=== PATIENT | male | born 1945 | race Caucasian/White ===

== ENCOUNTER 2025-05-21 10:21 | Inpatient (IN) | payer OTHER, MEDICAID ==
[2025-05-21] VITALS (32 sets, daily range): BP systolic 94–141; BP diastolic 60–91; PULSE 67–98; RESP 11–30; TEMP 98.5–99.3; O2SAT 18–98
[~2025-05-21] VITALS: Ht 185.4 cm; Wt 90.0 kg
[2025-05-21] MEDS: HEPARIN SODIUM (PORCINE) 5000 UNITS/ML 1ML VIAL IV ONE (10:35)
[2025-05-21] MEDS: HEPARIN 1,000 UNITS/ml 1ML VIAL IV ONE (10:35)
--- NOTE | 2025-05-21 10:35 | DVHINCON2 ---
Date Seen: May 21, 2025 Referring Physician MD Jose Reason for Consultation STEMI History of Present Illness This is a pleasant 80-year-old man who presented to the emergency room via EMS with a chief complaint of chest pain since Tuesday. Describes his chest pain as left-sided, nonradiating, non provoked, pressure-like, and associated with shortness of breath. Given progression of symptoms, patient decided to call 911. EN route to the hospital he was medicated with ASA 324 mg p.o. x1. Upon arrival to the emergency room he underwent a 12 lead electrocardiogram revealing inferoseptal ST-elevation for which Code STEMI was activated by ED physician. Doctor Nile communicated with Dr. Sepulveda who will be taking the case. The patient only reports a past medical history of benign prostatic hyperplasia on Flomax. Significant familial history includes mother with a history of a myocardial infarction not undergoing invasive cardiac procedures. Follows up in the outpatient setting with Dr. Lion with latest appointment completed a week ago. Past Medical History Past medical history reviewed. No other significant than mentioned above. Past Surgical History Hemorrhoidectomy Family History Family history reviewed. Mother with PA not undergoing invasive cardiac procedures. Social History Denies the use of illicit drugs, alcohol, or tobacco use. Allergies: Coded Allergies: Penicillins (Verified Allergy, Severe, 05/21/25) Home Meds Home medications reviewed. Review of Systems Constitutional: No symptom reported Ears, Nose, & Throat: No symptom reported Eyes: No symptom reported Neurological: No symptoms reported Pulmonary/Respiratory: SOB Cardiovascular: Chest pain Gastrointestinal: No symptom reported Genitourinary: No symptom reported Musculoskeletal: No symptom reported Skin: No symptom reported Psychiatric: No symptom reported Endocrine: No symptom reported Hemotologic/Lymphatic: No symptom reported Vital Signs Vital Signs Date Time Temp Pulse Resp B/P (MAP) Pulse Ox O2 Delivery O2 Flow Rate FiO2 05/21/25 10:34 98.1 74 18 145/81 (102) 95 98.1 05/21/25 10:21 Nasal Cannula* 3 32 Physical Exam General Appearance: Cooperative. Well developed. Well nourished. In no acute distress Head Exam: Normal inspection Neck Exam: Normal inspection. Non-tender. Normal alignment Pulmonary/Respiratory: Chest non-tender. Clear bilateral breath sounds Cardiovascular/Chest: Regular rate and rhythm. S1, S2. Inferoseptal myocardial infarction. No murmurs. No JVD. Peripheral Pulses: 2+ Radial (R). 2+ Radial (L). 2+ Pedal (R). 2+ Pedal (L) Abdominal Exam: Normal bowel sounds. Soft. Nontender. No hepatospenomegaly. No masses Ankle Exam: Negative ankle edema Lower extremities: Negative lower extremity edema Neuro/Mental Status: A&O x4. Coherent Thoughts/Psych: Normal thought pattern. Appropriate mood and affect. Good judgement and insight Appearance: In no acute distress Skin Exam: Normal inspection. Normal color. Warm. Dry Assessment ST-elevation myocardial infarction Rule out structural heart disease Pertinent family history for CV disease Plan/Recommendation (Dr. Sepulveda) The patient will be undergoing emergent coronary angiogram with cardiac catheterization at first available with Dr. Sepulveda. Risks and benefits of the procedure were discussed in full detail with the patient who agreed to proceed with intervention. All questions answered. In the meantime, obtain a transthoracic echocardiogram to evaluate cardiac function. Patient loaded on heparin IV and ASA p.o. Blood work and CXR pending at this time. Further orders per clinical course. Thank you for allowing us to participate in this patient's care. Please call if you have any questions or concerns. Critical care time: 40 min. This medical document was created using an electronic medical record system with voice recognition software and computerized dictation system. Although this document has been carefully reviewed, there might still be some phonetic and typographical errors. Occasional wrong-word or ``sound-alike substitutions may have occurred due to the inherent limitations of voice recognition software. These areas are purely typographical due to imperfections of the software programs and do not reflect any compromise in the patient's medical care. Please read the chart carefully and recognize, using context, where these substitutions have occurred. Plan discussed with: Patient, Other NYHA Physical activity limitations: NA Date of Service: May 21, 2025 Billing Provider: EDWINA OLIVARES Cardiology Common Codes: 66717-[id number] CARE 30-74 MIN EDWINA OLIVARES May 21, 2025 10:35
[2025-05-21] MEDS: MORPHINE SULFATE INJ 2 MG/ml SYRG IV ONE (10:36)
[2025-05-21] MEDS: ONDANSETRON HCL 4 MG/2 ML VIAL IV ONE (10:36)
[2025-05-21] MEDS: MORPHINE SULFATE INJ 2 MG/ml SYRG ONE (10:37)
[2025-05-21] MEDS: ONDANSETRON HCL 4 MG/2 ML VIAL ONE (10:37)
[2025-05-21 10:45] LABS: Hematocrit 46.1 % (41.0-53.0); Hemoglobin 15.8 g/dL (13.5-17.5); Mean Corpuscular Hemoglobin 32.6 pg (28.0-32.0); Mean Corpuscular Volume 95.1 fL (80.0-100.0); Nucleated Red Blood Cells % 0.0 %
--- NOTE | 2025-05-21 10:49 | ED.PDOC ---
HPI Comments This is a 80-year-old male with past medical history of brought in by EMS due to chest pain. Per patient, pain started while he was sitting, localized at substernal area, nonradiating, describes as heaviness, 9/10 in intensity, worsening with changing position and walking. He also reports of shortness of breaths. Patient reports of having chest pain 1 week back which lasted for short time, and developed back same pain on Tuesday which lasted for all day. He denies fever, cough, palpitation, nausea, vomiting, or sweating. He denies of any heart problem in the past. Chief Complaint: Chest Pain Time Seen by MD: 10:28 Reviewed Notes: Admissions Advisor Notes Allergies: Coded Allergies: Penicillins (Verified Allergy, Severe, 05/21/25) Information Source: Patient Mode of Arrival: EMS Severity: Severe Timing: Days Duration: Days Prehospital treatment: 12 Lead EKG Location: Substernal Quality: Heavy Onset: At Rest Cardiac Risk Factors: None PE Risk Factors: None History of: None Modifying Factors: Exertion, Position Change Associated Signs and Symptoms: SOB Past Medical History Past Medical History (Other): BPH and hemorrhoids Surgical History: Denies all surgeries Family History Family History: Reviewed,noncontributory to illness, No family hx of Cancer, No family hx of DM, No family hx of Heart alysha, No family hx of HTN, No family hx ofKidney alysha, No family hx of Liver alysha, No family hx of Lung alysha, No family hx of Stroke Social History Smoker: Non-Smoker Alcohol: Denies ETOH Use Drugs: Denies Drug Use Constitutional: denies: chills, diaphoresis, fatigue, fever, malaise, sweats, weakness, others EENTM: denies: blurred vision, double vision, ear bleeding, ear discharge, ear drainage, ear pain, ear ringing, eye pain, eye redness, hearing loss, mouth pain, mouth swelling, nasal discharge, nose bleeding, nose congestion, nose pain, photophobia, tearing, throat pain, throat swelling, voice changes, others Respiratory: reports: shortness of breath; denies: cough, hemoptysis, orthopnea, SOB at rest, SOB with excertion, stridor, wheezing, others Cardiovascular: reports: chest pain; denies: dizzy spells, diaphoresis, Dyspnea on exertion, edema, irregular heart beat, left arm pain, lightheadedness, palpitations, PND, syncope, others Gastrointestinal: denies: abdomen distended, abdominal pain, blood streaked bowels, constipated, diarrhea, dysphagia, difficulty swallowing, hematemesis, melena, nausea, poor appetite, poor fluid intake, rectal bleeding, rectal pain, vomiting, others Genitourinary: denies: burning, dysuria, flank pain, frequency, hematuria, incontinence, penile discharge, penile sore, pain, testicle pain, testicle swelling, urgency, others Neurological: denies: dizziness, fainting, headache, left sided numbness, left sided weakness, numbness, paresthesia, pre-existing deficit, right sided numbness, right sided weakness, seizure, speech problems, tingling, tremors, weakness, others Musculoskeletal: denies: back pain, gout, joint pain, joint swelling, muscle pain, muscle stiffness, neck pain, others Integumetry: denies: bruises, change in color, change in hair/nails, dryness, laceration, lesions, lumps, rash, wounds, others Allergic/Immunocompromised: denies: Difficulty Healing, Frequent Infections, Hives, Itching, others Hematologic/Lymphatic: denies: anemia, blood clots, easy bleeding, easy bruising, swollen glands, others Endocrine: denies: excessive hunger, excessive sweating, excessive thirst, excessive urination, flushing, intolerance to cold, intolerance to heat, unexplained weight gain, unexplained weight loss, others Psychiatric: denies: anxiety, bipolar disorder, depression, hopeless, panic disorder, schizophrenia, sleepless, suicidal, others Physical Exam General Appearance: Moderate Distress, Normal HEENT: Normal ENT Inspection, Pharynx Normal, TMs Normal Neck: Full Range of Motion, Non-Tender, Normal, Normal Inspection Respiratory: Chest Non-Tender, Lungs Clear, No Accessory Muscle Use, No Respiratory Distress, Normal Breath Sounds Cardiovascular: No Edema, No JVD, No Murmur, No Gallop, Normal Peripheral Pulses, Regular Rate/Rhythm Breast Exam: Deferred Gastrointestinal: No Organomegaly, Non Tender, No Pulsatile Mass, Normal Bowel Sounds, Soft Genitalia: Deferred Pelvic: Deferred Rectal: Deferred Extremities: No calf tenderness, Normal capillary refill, Normal inspection, Normal range of motion, Non-tender, No pedal edema Neurologic: Alert, loss prevention detective II-XII nml as Tested, No Motor Deficits, Normal Affect, Normal Mood, No Sensory Deficits Cerebellar Function: Normal Reflexes: Normal Skin: Dry, Normal Color, Warm Lymphatic: No Adenopathy EKG EKG : Comments EKGs shows sinus rhythm, left axis, Q-wave in lateral and inferior leads, ST- elevation in lateral leads (V3-V6 and inferior leads). Was a procedure done? Was a procedure done?: No CP Differential Dx Differential Diagnosis: Heart Failure Differential Diagnosis: Angina, Myocardial Infarction, Pericarditis, Pulmonary Embolus X-Ray, Labs, Meds, VS Vital Signs Date Time Temp Pulse Resp B/P (MAP) Pulse Ox O2 Delivery O2 Flow Rate FiO2 05/21/25 10:36 87 22 132/84 05/21/25 10:34 98.1 74 18 145/81 (102) 95 98.1 05/21/25 10:23 85 05/21/25 10:21 98.1 74 18 145/81 95 98.1 05/21/25 10:21 95 Nasal Cannula* 3 32 Lab Test 05/21/25 10:30 Range/Units White Blood Count 9.8 4.4-10.8 10^3/uL Red Blood Count 4.84 4.5-5.90 10^6/uL Hemoglobin 15.8 13.5-17.5 g/dL Hematocrit 46.1 41.0-53.0 % Mean Corpuscular Volume 95.1 80.0-100.0 fL Mean Corpuscular Hemoglobin 32.6 H 28.0-32.0 pg Mean Corpuscular Hemoglobin Concent 34.3 32.0-36.0 g/dL Red Cell Distribution Width 15.0 H 11.8-14.3 % Platelet Count 174 140-450 10^3/uL Mean Platelet Volume 8.3 6.9-10.8 fL Neutrophils (%) (Auto) 75.0 37.0-80.0 % Lymphocytes (%) (Auto) 13.5 10.0-50.0 % Monocytes (%) (Auto) 11.3 0.0-12.0 % Eosinophils (%) (Auto) 0.0 0.0-7.0 % Basophils (%) (Auto) 0.2 0.0-2.0 % Neutrophils # (Auto) 7.3 1.6-8.6 10 ^3/uL Lymphocytes # (Auto) 1.3 0.4-5.4 10 ^3/uL Monocytes # (Auto) 1.1 0-1.3 10 ^3/uL Eosinophils # (Auto) 0 0-0.8 10 ^3/uL Basophils # (Auto) 0 0-0.2 10 ^3/uL Nucleated Red Blood Cells 0.0 % Sodium Level Pending Potassium Level Pending Chloride Level Pending Carbon Dioxide Level Pending Anion Gap Pending Blood Urea Nitrogen Pending Creatinine Pending Glomerular Filtration Rate Calc Pending BUN/Creatinine Ratio Pending Serum Glucose Pending Calcium Level Pending Magnesium Level Pending Total Bilirubin Pending Aspartate Amino Transferase (AST) Pending Alanine Aminotransferase (ALT) Pending Alkaline Phosphatase Pending Troponin I High Sensitivity Pending Total Protein Pending Albumin Pending Triglycerides Level Pending Cholesterol Level Pending LDL Cholesterol Pending HDL Cholesterol Pending Current Medications Medications (Trade) Dose Ordered Sig/Lacey Route Start Time Stop Time Status Last Admin Heparin Sodium (Porcine) 4,000 units ONCE ONCE IV 05/21/25 10:45 05/21/25 10:46 DC 05/21/25 10:35 Morphine Sulfate 2 mg ONCE ONCE IV 05/21/25 10:45 05/21/25 10:46 DC 05/21/25 10:36 Ondansetron HCl (Zofran) 4 mg ONCE ONCE IV 05/21/25 10:45 05/21/25 10:46 DC 05/21/25 10:36 Time of 1ST Reevaluation: 10:30 Reevaluation 1ST: Unchanged Time of 2ND Reevaluation: 10:50 Reevaluation 2ND: Unchanged Consultation: Cardiology Patient Education/Counseling: Diagnosis, Treatment, Prognosis, Need For Follow Up Family Education/Counseling: No Family Present Comments Patient brought by EMS due to chest pain and shortness of breaths. EMS EKG (which was taken at the scene), reviewed showed sinus rhythm, left axis, Q-wave at lateral leads (V3 to 6), and inferior leads with ST-elevation at lateral leads and inferior leads. EKG repeated upon arrival at ER, showed same finding. Patient was given aspirin by EMS. Patient was given atorvastatin Chest x-ray showed pulmonary vascular congestion, otherwise no significant intrathoracic abnormalities The patient was given loading dose of heparin and put on heparin drip. Code ST-elevation RI activated and called pre k teacher Due to shortness of breath, the patient was put on oxygen through nasal cannula. Patient was given morphine IV Cardiology evaluated the patient, and planned for primary PCI. SEPSIS Sepsis Screen Date sepsis recognized/suspect: May 21, 2025 Time Sepsis recognized/suspect: 1031 Recent Procedure: No On Antibiotic Therapy: No Respiratory Rate >20: No Heart Rate >90: No Temp<36 C (96.8 F) or >38.3 C: No SBP <90 or MAP <65 mmHG: No New Acute Mental Status Change: No Is the patient on CPAP, BIPAP,: No Physician Orders Comprehensive Metabolic Panel (05/21/25 10:26) Magnesium (05/21/25 10:26) Public Transit Specialist (05/21/25 10:26) Blood Pressure (05/21/25 10:26) Pulse Oximetry (05/21/25 10:26) Heplock Iv (05/21/25 10:26) Heplock Iv (05/21/25 10:26) Oxygen Per Hour (05/21/25 10:26) Lipid Panel (05/21/25 10:26) Troponin-I Hs (05/21/25 10:26) Electrocardigram (05/21/25 10:26) Troponin-I Hs (05/21/25 11:26) Troponin-I Hs (05/21/25 13:26) Electrocardigram (05/21/25 11:26) Electrocardigram (05/21/25 13:26) Npo Except For Medications (05/22/25 00:01) Obtain Consent For: (05/21/25 10:35) Hold Enoxaparin Day Of Procedu (05/22/25 00:01) D/C Tlc (05/21/25 10:35) Shave Both Groins (05/21/25 10:35) Provide Education Materials (05/21/25 10:35) Cl Left Heart Cath (05/21/25 10:35) Comprehensive Metabolic Panel (05/23/25 04:00) Npo (Nothing By Mouth) Diet (05/22/25 Breakfast) Npo (Nothing By Mouth) Diet (05/21/25 Lunch) Obtain Consent For Anesthesia (05/21/25 10:35) Thyroid Stimulating Hormone (05/21/25 10:38) B-Type Natriuretic Peptide (05/21/25 10:38) Echo 2d Mode Cardiac Dop (05/21/25 10:38) Chest Portable (05/21/25 10:38) Vital Signs Date Time Temp Pulse Resp B/P (MAP) Pulse Ox O2 Delivery O2 Flow Rate FiO2 05/21/25 10:36 87 22 132/84 05/21/25 10:34 98.1 74 18 145/81 (102) 95 98.1 05/21/25 10:23 85 05/21/25 10:21 98.1 74 18 145/81 95 98.1 05/21/25 10:21 95 Nasal Cannula* 3 32 Laboratory Tests Test 05/21/25 10:30 White Blood Count 9.8 10^3/uL (4.4-10.8) Medications Medications Dose Ordered Sig/Lacey Route Start Time Stop Time Status Last Admin Dose Admin Heparin Sodium (Porcine) 4,000 units ONCE ONCE IV 05/21/25 10:45 05/21/25 10:46 DC 05/21/25 10:35 Morphine Sulfate 2 mg ONCE ONCE IV 05/21/25 10:45 05/21/25 10:46 DC 05/21/25 10:36 Ondansetron HCl 4 mg ONCE ONCE IV 05/21/25 10:45 05/21/25 10:46 DC 05/21/25 10:36 Departure 1 Departure Time of Disposition: 10:50 Impression: Primary Impression: Acute myocardial infarction Additional Impression: Angina pectoris Disposition: 30 STILL A PATIENT Admit to: Tele Condition: Serious Critical Care Note Critical Care Time?: No Stability Stability form required: No Heart Score Heart Score: Heart Score Response (Comments) Value History Highly Suspicious [address]-Deviation 2 Age >65 2 Risk Factors 1 or 2 risk factors 1 Troponin N/A 0 Total 7 GUNNARANTOINETTEDYANA RESDIENT May 21, 2025 10:49
[2025-05-21] MEDS ORDERED: NITROGLYCERIN 0.4 MG SL TAB SL PRN (11:00)
[2025-05-21] MEDS ORDERED: LORazepam 0.5 MG TAB PO PRN (11:00)
[2025-05-21] MEDS ORDERED: MORPHINE SULFATE INJ 2 MG/ml SYRG IV PRN (11:00)
--- NOTE | 2025-05-21 11:01 | DVHHP2 ---
History of Present Illness Reason for Visit: Chest Pain History of Present Illness Patient 80 year-old M with PMHx of BPH who presented to the ER with complaints of Chest pain that started on Tuesday05/18/25. Patient described it as pressure like sensation which later subsided and came back today this AM. Patient denies having any cardiac workup done in the past. In the ER patient was found to have a STEMI, therefore taken to the Solar Energy Systems Engineer immediately for intervention. Review of Systems Constitutional: No: Fever, Chills, Sweats, Weakness, Malaise, Other Eyes: No: Pain, Vision change, Conjunctivae inflammation, Eyelid inflammation, Other, Redness ENT: No: Ear pain, Ear discharge, Nose pain, Nose discharge, Nose congestion, Mouth pain, Mouth swelling, Throat pain, Throat swelling, Other Respiratory: No: Cough, Dry, Shortness of breath, SOB with excertion, Wheezing, Hemoptysis, Pleuritic Pain, Sputum, Wheezing, Other Cardiovascular: Chest Pain, Palpitations Gastrointestinal: No: Nausea, Vomiting, Abdominal Pain, Diarrhea, Constipation, Melena, Hematochezia, Other Genitourinary: No Dysuria, No Frequency, No Incontinence, No Hematuria, No Retention, No Other Musculoskeletal: No: other, neck pain, shoulder pain, arm pain, back pain, hand pain, leg pain, foot pain Skin: No: Rash, Lesions, Jaundice, Bruising, Other Neurological: No: Weakness, Numbness, Incoordination, Change in speech, Confusion, Seizures, Other Allergies: Coded Allergies: Penicillins (Verified Allergy, Severe, 05/21/25) Exam Vital Signs Vital Signs Date Time Temp Pulse Resp B/P (MAP) Pulse Ox O2 Delivery O2 Flow Rate FiO2 05/21/25 10:36 87 22 132/84 05/21/25 10:34 98.1 95 98.1 05/21/25 10:21 Nasal Cannula* 3 32 General Appearance: Alert, Oriented X3, Cooperative, moderate distress HEENT: Atraumatic, PERRLA, EOMI Respiratory: Clear to auscultation Cardiovascular: Other (Tachycardic) Abdominal: Normal bowel sounds, Soft Extremities: No clubbing Psych/Mental Status: Mental status NL Labs/Xrays Labs Test 05/21/25 10:30 Range/Units White Blood Count 9.8 4.4-10.8 10^3/uL Red Blood Count 4.84 4.5-5.90 10^6/uL Hemoglobin 15.8 13.5-17.5 g/dL Hematocrit 46.1 41.0-53.0 % Mean Corpuscular Volume 95.1 80.0-100.0 fL Mean Corpuscular Hemoglobin 32.6 H 28.0-32.0 pg Mean Corpuscular Hemoglobin Concent 34.3 32.0-36.0 g/dL Red Cell Distribution Width 15.0 H 11.8-14.3 % Platelet Count 174 140-450 10^3/uL Mean Platelet Volume 8.3 6.9-10.8 fL Neutrophils (%) (Auto) 75.0 37.0-80.0 % Lymphocytes (%) (Auto) 13.5 10.0-50.0 % Monocytes (%) (Auto) 11.3 0.0-12.0 % Eosinophils (%) (Auto) 0.0 0.0-7.0 % Basophils (%) (Auto) 0.2 0.0-2.0 % Neutrophils # (Auto) 7.3 1.6-8.6 10 ^3/uL Lymphocytes # (Auto) 1.3 0.4-5.4 10 ^3/uL Monocytes # (Auto) 1.1 0-1.3 10 ^3/uL Eosinophils # (Auto) 0 0-0.8 10 ^3/uL Basophils # (Auto) 0 0-0.2 10 ^3/uL Nucleated Red Blood Cells 0.0 % SEPSIS Sepsis Screen Date sepsis recognized/suspect: May 21, 2025 Time Sepsis recognized/suspect: 103 Recent Procedure: No On Antibiotic Therapy: No Respiratory Rate >20: No Heart Rate >90: No Temp<36 C (96.8 F) or >38.3 C: No SBP <90 or MAP <65 mmHG: No New Acute Mental Status Change: No Is the patient on CPAP, BIPAP,: No Physician Orders Comprehensive Metabolic Panel (05/21/25 10:26) Magnesium (05/21/25 10:26) Tile Trimmer (05/21/25 10:26) Blood Pressure (05/21/25 10:26) Pulse Oximetry (05/21/25 10:26) Heplock Iv (05/21/25 10:26) Heplock Iv (05/21/25 10:26) Oxygen Per Hour (05/21/25 10:26) Lipid Panel (05/21/25 10:26) Troponin-I Hs (05/21/25 10:26) Electrocardigram (05/21/25 10:26) Troponin-I Hs (05/21/25 11:26) Troponin-I Hs (05/21/25 13:26) Electrocardigram (05/21/25 11:26) Electrocardigram (05/21/25 13:26) Npo Except For Medications (05/22/25 00:01) Obtain Consent For: (05/21/25 10:35) Hold Enoxaparin Day Of Procedu (05/22/25 00:01) D/C Tlc (05/21/25 10:35) Shave Both Groins (05/21/25 10:35) Provide Education Materials (05/21/25 10:35) Cl Left Heart Cath (05/21/25 10:35) Comprehensive Metabolic Panel (05/23/25 04:00) Obtain Consent For Anesthesia (05/21/25 10:35) Thyroid Stimulating Hormone (05/21/25 10:38) B-Type Natriuretic Peptide (05/21/25 10:38) Echo 2d Mode Cardiac Dop (05/21/25 10:38) Chest Portable (05/21/25 10:38) Admit (05/21/25 10:50) Code Status (05/21/25 10:50) Vital Signs .PER UNIT PROTOCOL (05/21/25 10:50) Review Orders With Adm.Md (05/21/25 10:50) [facility]Diabetes (05/21/25 Lunch) Sodium Chloride Lock (Saline Lock Ns) (05/21/25 14:00) Lorazepam Tablet (Ativan Tablet) (05/21/25 11:00) Acetaminophen Tablet (Tylenol Tablet) (05/21/25 11:00) Notify Md Of Changes From Base (05/21/25 10:50) Advance Directive (05/21/25 10:50) Urine Bacterial Culture (05/21/25 10:50) Patient Condition (05/21/25 10:50) Allergies (05/21/25 10:50) Hydrocodone-Acet 5/325mg Tab (Assumption 5/32 (05/21/25 11:00) Ondansetron Hcl (Zofran) (05/21/25 11:00) Morphine 2mg Iv Q4hprn (05/21/25 11:00) Nitroglycerin Sublingual (Ntrostat Subli (05/21/25 11:00) Morphine Sulfate Injection (05/21/25 11:00) Stat Ekg For Chest Pain (05/21/25 10:50) Notify Of Changes From Base (05/21/25 10:50) Stress Test Technician For 24 Hours (05/21/25 10:50) Emergency Dysrhythmia Protocol (05/21/25 10:50) Rhythm Strips Once Every Shift (05/21/25 10:50) Oxygen By Nasal Cannula (05/21/25 10:50) Vital Signs Date Time Temp Pulse Resp B/P (MAP) Pulse Ox O2 Delivery O2 Flow Rate FiO2 05/21/25 10:36 87 22 132/84 05/21/25 10:34 98.1 74 18 145/81 (102) 95 98.1 05/21/25 10:23 85 05/21/25 10:21 98.1 74 18 145/81 95 98.1 05/21/25 10:21 95 Nasal Cannula* 3 32 Laboratory Tests Test 05/21/25 10:30 White Blood Count 9.8 10^3/uL (4.4-10.8) Medications Medications Dose Ordered Sig/Lacey Route Start Time Stop Time Status Last Admin Dose Admin Heparin Sodium (Porcine) 4,000 units ONCE ONCE IV 05/21/25 10:45 05/21/25 10:46 DC 05/21/25 10:35 4,000 UNITS Morphine Sulfate 2 mg ONCE ONCE IV 05/21/25 10:45 05/21/25 10:46 DC 05/21/25 10:36 2 MG Ondansetron HCl 4 mg ONCE ONCE IV 05/21/25 10:45 05/21/25 10:46 DC 05/21/25 10:36 4 MG Assessment/Plan Assessment/Plan # STEMI - LHC - Heparin IV # Possible Acute Systolic / Diastolic CHF - Consider Lasix # YUNI due to VMN vs ATN - Monitor # BPH - Resume Flomax d/w Juli ([facility] caregiver at bedside) Plan discussed with: Patient My Orders Orders - JACKSON CASTLE MD Procedure Category Date Status Time Admit ADMIT 05/21/25 Transmitted 10:50 Code Status CODE 05/21/25 Transmitted 10:50 Vital Signs MARIKA 05/21/25 In Process 10:50 Review Orders With [facility] 05/21/25 In Process Adm. 10:50 Consistent DIET 05/21/25 Transmitted Carb(Ccho)Diabetes Lunch Sodium Chloride Lock PHA 05/21/25 Transmitted (Saline Lock Ns) 14:00 Lorazepam Tablet PHA 05/21/25 Verified (Ativan Tablet) 11:00 Acetaminophen Tablet PHA 05/21/25 Transmitted (Tylenol Tablet) 11:00 Notify Md Of Changes [facility] 05/21/25 In Process From Base 10:50 Advance Directive MARIKA 05/21/25 In Process 10:50 Urine Bacterial NATHALY 05/21/25 Transmitted Culture 10:50 Patient Condition ORDERS 05/21/25 Transmitted 10:50 Allergies MARIKA 05/21/25 In Process 10:50 Hydrocodone-Acet PHA 05/21/25 Transmitted 5/325mg Tab (Assumption 11:00 Ondansetron Hcl PHA 05/21/25 Transmitted (Zofran) 11:00 Morphine 2mg Iv Q4hprn PHA 05/21/25 Transmitted 11:00 Nitroglycerin PHA 05/21/25 Transmitted Sublingual (Ntrostat 11:00 Morphine Sulfate PHA 05/21/25 Transmitted Injection 11:00 Stat Ekg For Chest MARIKA 05/21/25 In Process Pain 10:50 Notify Md Of Changes MARIKA 05/21/25 In Process From Base 10:50 Stress Test Technician For MARIKA 05/21/25 In Process 24 Hours 10:50 Emergency Dysrhythmia MARIKA 05/21/25 In Process Protocol 10:50 Rhythm Strips Once MARIKA 05/21/25 In Process Every Shift 10:50 Oxygen By Nasal RT 05/21/25 Transmitted Cannula 10:50 Date of Service: May 21, 2025 Billing Provider: JACKSON CASTLE MD Common Visit Codes: [id number] INP/OBS CARE (HIGH) JACKSON CASTLE MD May 21, 2025 11:01
[2025-05-21 11:03] LABS: Albumin 4.1 g/dL (3.2-4.8); Anion Gap 11 (5-15); BUN/Creatinine Ratio 12.7 (10.0-20.0); Blood Urea Nitrogen 17 mg/dL (9-23); Calcium 9.7 mg/dL (8.7-10.4); Carbon Dioxide 22 mmol/L (20-31); Chloride 103 mmol/L (98-107); Magnesium 1.9 mg/dL (1.6-2.6); Potassium 4.3 mmol/L (3.5-5.1); Sodium 136 mmol/L (136-145); Triglycerides 62 mg/dL (< 150)
[2025-05-21 11:04] LABS: Alanine Aminotransferase 43 U/L (7-40); Bilirubin, Total 1.8 mg/dL (0.2-1.0); Cholesterol 159 mg/dL (< 200); Glucose 128 mg/dL (74-106); HDL Cholesterol 50 mg/dL (40-59); Total Protein 9.2 g/dL (5.7-8.2)
[2025-05-21 11:08] LABS: Alkaline Phosphatase 96 U/L (46-116)
--- NOTE | 2025-05-21 11:11 | DVH ---
EXAM: XY CHEST PORTABLE HISTORY: Pre-op COMPARISON: None TECHNIQUE: Portable upright AP view of the chest was performed. FINDINGS: There is right hemidiaphragm elevation with right lung base scarring versus atelectasis present. No o ther infiltrates, pneumothorax, or pulmonary edema. The heart is borderline enlarged. IMPRESSION: 1. Mildly elevated right hemidiaphragm with associated right lung base scarring versus atelectasis. 2. The left lung is clear.
[2025-05-21 11:40] LABS: INR 1.17 (0.9-1.15); Partial Thromboplastin Time 30.9 SEC (24.5-34.5); Prothrombin Time 12.2 sec (9.3-11.8)
--- NOTE | 2025-05-21 12:40 | DVHOP ---
DATE OF SURGERY: 05/21/2025 INDICATIONS: The patient is a 80-year-old who was brought to the Emergency Room with chest pain. The patient's ST elevation was noted in the anterior lead, but there is persistent ST elevation even following intervention that is consistent with apical aneurysm. The patient denies any previous history of myocardial infarction. Denies any history of previous coronary artery disease. He has not had any risk stratification in the past. Now, the patient presents above symptoms. The elevated troponin with acute changes of EKG noted. The patient with now anterior wall STEMI, now to undergo coronary angiography to define coronary anatomy emergently. PROCEDURES PERFORMED: * Selective left and right coronary angiography. * Ventriculogram. * Angioplasty with stent placement of the mid to distal left anterior descending artery with a 3.0 x 18 mm [place] stent. * Thrombectomy and shockwave treatment of the left anterior descending artery with balloon angioplasty. * Conscious sedation. DESCRIPTION OF PROCEDURE: The patient was prepped and draped in sterile condition. 1% Xylocaine was used to anesthetize the right groin. Using a Cook needle, the right femoral artery was engaged with Seldinger technique. A 6-Greenlandic sheath in the right femoral artery. Using a 6-Greenlandic JL4.5 diagnostic catheter and 6-Greenlandic JR4.0 diagnostic catheter, selective left and right coronary angiography was performed. Then, the 6-Greenlandic diagnostic system was exchanged for a 6-Greenlandic interventional system. Using a 6-Greenlandic XB 4.0 guide catheter to be able to cannulate the left main. Using a Choice PT Extra Support wire, the initial wire was placed into the circumflex artery. The second wire was then negotiated into the left anterior descending artery, which was occluded. Then, the circumflex artery was redirected into the left anterior descending artery and was able to cross the occluded portion of the left anterior descending artery. The lesion was then angioplastied using a 2.5 x 15 mm Euphora balloon. 4 x 2.5 x 15 mm shockwave thrombectomy catheter was used to treat the lesion because it was heavily calcified. Then, a 3.0 x 18 mm [place] stent was then deployed across the lesion at 14 atmospheres. There were no complications. The patient tolerated the procedure well. Ventriculogram was then performed post angioplasty. RESULTS: * Left main calcified, no flow restrictive lesion. Left anterior descending artery was heavily calcified, but at the mid portion of the LAD, it was occluded. Status post angioplasty with stent placement with thrombectomy with less than 10% residual stenosis. * Circumflex artery moderate diffuse disease without any flow-restrictive lesion. * Obtuse marginal one, which is a small caliber vessel, also had moderate diffuse disease; however, it was less than 2 mm in size. * Right coronary artery had large dominant vessel, moderate diffuse disease throughout, heavy plaquing noted throughout, but no discrete lesions were noted. 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 * The patient has very enlarged aneurysmal ascending aorta that required upsizing of the catheters from requiring almost a JL5.0 and XB 4.5 to actually cannulate the coronary anatomy. There was no gradient across the aortic valve as stated above. CONCLUSION: Thus, patient with: * Acute myocardial infarction, anterior wall territory, status post angioplasty with stent placement of the left anterior descending artery. * The patient with aneurysmal ascending aorta. 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 At this time, the patient should be aggressively treated with afterload reduction, preload reduction, dual antiplatelet therapy, anticoagulation as well. We will continue to follow the patient. Echo should be done in about 6 weeks to reassess patient's LV function and a baseline echo should be done while the patient is in the hospital. Jc Sepulveda MD SA/FLAVIO TID: [id number] RECEIPT: [id number]
[2025-05-21] MEDS: IODIXANOL 320MG/ML 100ML BTL IV ONE ×2 (20:28→20:29)
[2025-05-21] MEDS: MIDAZOLAM HCL 2MG/2ML 2ml VIAL (1mg/ml) ONE (20:28)
[2025-05-21] MEDS: fentaNYL CITRATE 100 MCG/2 ML VL ONE (20:28)
[2025-05-21] MEDS: LIDOCAINE 2%HCL (LOCAL ANESTH.) INJ 20ML MDV ONE (20:28)
[2025-05-21] MEDS: CLOPIDOGREL BISULFATE 75 MG TAB ONE (20:29)
[2025-05-21] MEDS: SODIUM CHL 0.9% 50 ML ONE (20:30)
[2025-05-21] MEDS: ANGIOMAX 250 MG VIAL IV ONE (20:30)
[2025-05-21] MEDS: ATORVASTATIN 20 MG TAB PO SCH (22:16)
[2025-05-21] MEDS: ONDANSETRON HCL 4 MG/2 ML VIAL IV PRN (22:16)
[2025-05-21] MEDS: SACUBITRIL-VALSARTAN 24mg/26mg TAB PO SCH (22:16)
[2025-05-21] MEDS: MORPHINE SULFATE INJ 2 MG/ml SYRG IV PRN (23:56)
[2025-05-22] VITALS (53 sets, daily range): BP systolic 76–119; BP diastolic 35–84; PULSE 62–86; RESP 13–30; TEMP 97.8–98.9; O2SAT 87–94
[2025-05-22] MEDS: SODIUM CHLOR 0.9% PF (SALINE LOCK) 10ML VIAL/SYR IV SCH (05:45)
[2025-05-22 06:37] LABS: Hematocrit 43.1 % (41.0-53.0); Hemoglobin 15.3 g/dL (13.5-17.5); Mean Corpuscular Hemoglobin 33.6 pg (28.0-32.0); Mean Corpuscular Volume 94.9 fL (80.0-100.0); Nucleated Red Blood Cells % 0.0 %
[2025-05-22 06:40] LABS: Albumin 3.8 g/dL (3.2-4.8); Anion Gap 10 (5-15); Calcium 9.3 mg/dL (8.7-10.4); Carbon Dioxide 24 mmol/L (20-31); Chloride 99 mmol/L (98-107); Potassium 4.7 mmol/L (3.5-5.1)
[2025-05-22 06:59] LABS: Alanine Aminotransferase 106 U/L (7-40); Alkaline Phosphatase 125 U/L (46-116); BUN/Creatinine Ratio 19.1 (10.0-20.0); Bilirubin, Total 2.0 mg/dL (0.2-1.0); Glucose 113 mg/dL (74-106); Sodium 133 mmol/L (136-145); Total Protein 8.5 g/dL (5.7-8.2)
[2025-05-22 07:00] LABS: Blood Urea Nitrogen 31 mg/dL (9-23)
--- NOTE | 2025-05-22 08:07 | ECG ---
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
--- NOTE | 2025-05-22 08:29 | DVH ---
XY CHEST PORTABLE, HISTORY: RESP DISTRESS COMPARISON: XY CHEST PORTABLE on DOS: 05/21/25 XY CHEST PORTABLE on DOS: 05/21/25 TECHNICAL DATA: 1 view of the chest was obtained. FINDINGS: Lines and tubes: None Cardiomediastinal silhouette: normal Pulmonary vasculature: normal Lung expansion: Low Lung airspace: Right basilar subsegmental atelectasis. Lung interstitium: normal Pleura: normal Pneumothorax: no Bones: Unremarkable Other: no IMPRESSION: Right basilar subsegmental atelectasis.
[2025-05-22] MEDS ORDERED: METOPROLOL SUCCINATE XL 50 MG TAB PO SCH (10:00)
[2025-05-22] MEDS ORDERED: EMPAGLIFLOZIN 10 MG TAB PO SCH (10:00)
--- NOTE | 2025-05-22 10:00 | DVHPN2 ---
Subjective Seen and examined at bedside. Patient is on 4L oxygen. BP on lower side, unable to give Beta blockers or ACEi or ARBs. Encouraged Incentive Spirometer. Changes from previous H/P or p: No Changes Eyes: No Pain, No Vision change, No Conjunctivae inflammation, No Eyelid inflammation, No Other, No Redness ENT: No Ear pain, No Ear discharge, No Nose pain, No Nose discharge, No Nose congestion, No Mouth pain, No Mouth swelling, No Throat pain, No Throat swelling, No Other Cardiovascular: No Chest Pain, No Palpitations, No Orthopnea, No Paroxysmal Noc. Dyspnea, No Edema, No Lt Headedness, No Other Respiratory: No Cough, No Dry; Shortness of breath; No SOB with excertion, No Wheezing, No Hemoptysis, No Pleuritic Pain, No Sputum, No Other Gastrointestinal: No Nausea, No Vomiting, No Abdominal Pain, No Diarrhea, No Constipation, No Melena, No Hematochezia, No Other Genitourinary: No Dysuria, No Frequency, No Incontinence, No Hematuria, No Retention, No Other Musculoskeletal: No other, No neck pain, No shoulder pain, No arm pain, No back pain, No hand pain, No leg pain, No foot pain Skin: No Rash, No Lesions, No Jaundice, No Bruising, No Other Objective Vitals Vital Signs Date Time Temp Pulse Resp B/P (MAP) Pulse Ox O2 Delivery O2 Flow Rate FiO2 05/22/25 08:00 69 05/22/25 08:00 18 93 Nasal Cannula* 4 36 05/22/25 08:00 98.0 93/54 (67) 98.0 Intake/Output Intake and Output 05/22/25 07:00 Intake Total 340 ml Output Total 150 ml Balance 190 ml Intake Oral 340 ml Output Urine Total 150 ml # Voids 1 Exam Gen: in bed NAD Cvs: N S1/S2, RRR Resp: Diminished b/l Abd: Soft, NT Bank Representative: AAO x 4 Medications Current Medications Medications Dose Ordered Sig/Lacey Route Start Time Stop Time Status Last Admin Dose Admin Sodium Chloride 10 ml Q8HR IV 05/21/25 14:00 05/22/25 06:00 10 ML Lorazepam 0.5 mg Q6HP PRN PO 05/21/25 11:00 Acetaminophen 650 mg Q6HP PRN PO 05/21/25 11:00 Acetaminophen/ Hydrocodone Bitart 1 tab Q4HP PRN PO 05/21/25 11:00 Ondansetron HCl 4 mg Q4HP PRN IV 05/21/25 11:00 05/21/25 22:16 4 MG Morphine Sulfate 2 mg Q4HPRN PRN IV 05/21/25 11:00 Nitroglycerin 0.4 mg Q5MINP PRN SL 05/21/25 11:00 Morphine Sulfate 2 mg Q30M PRN IV 05/21/25 11:00 05/22/25 03:21 2 MG Aspirin 81 mg DAILY PO 05/22/25 10:00 Clopidogrel Bisulfate 75 mg DAILY PO 05/22/25 10:00 Atorvastatin Calcium 40 mg HS PO 05/21/25 22:00 05/21/25 22:16 40 MG Empaglifozin 10 mg DAILY PO 05/22/25 10:00 Laboratory Results Laboratory Tests 05/22/25 05:43 Chemistry Test 05/21/25 10:30 05/22/25 05:43 Albumin 4.1 g/dL (3.2-4.8) 3.8 g/dL (3.2-4.8) Calcium Level 9.7 mg/dL (8.7-10.4) 9.3 mg/dL (8.7-10.4) Magnesium Level 1.9 mg/dL (1.6-2.6) Total Protein 9.2 g/dL (5.7-8.2) H 8.5 g/dL (5.7-8.2) H Coagulation Test 05/21/25 10:30 Prothrombin Time 12.2 sec (9.3-11.8) H Prothrombin Time INR 1.17 (0.9-1.15) H Activated Partial Thromboplast Time 30.9 SEC (24.5-34.5) Lipid panel Test 05/21/25 10:30 Cholesterol Level 159 mg/dL (< 200) HDL Cholesterol 50 mg/dL (40-59) Triglycerides Level 62 mg/dL (< 150) Cardiac Markers Test 05/21/25 10:30 B-Type Natriuretic Peptide 277.83 pg/mL (0-100) LFT Test 05/21/25 10:30 05/22/25 05:43 Alanine Aminotransferase (ALT) 43 U/L (7-40) H 106 U/L (7-40) H Alkaline Phosphatase 96 U/L (46-116) 125 U/L (46-116) H Aspartate Amino Transferase (AST) 190 U/L (13-40) H 245 U/L (13-40) H Total Bilirubin 1.8 mg/dL (0.2-1.0) H 2.0 mg/dL (0.2-1.0) H HgA1c, TSH Test 05/21/25 10:30 05/21/25 13:29 Thyroid Stimulating Hormone (TSH) 1.00 uIU/mL (0.55-4.78) Hemoglobin A1c 5.4 % A1C (<5.7) Assessment/Plan Assessment/Plan # STEMI - s/p LHC with PCI to LAD # Aortic Aortic Aneurysm - Outpatient followup # Acute Resp Failure - Titrate Oxygen down # Possible Acute Systolic CHF - Consider Lasix when BP improved # YUNI due to VMN vs ATN - Monitor # BPH - Resume Flomax on DC # Transaminitis - HOLD Statins Critical care time 45 mins Plan discussed with: Patient My Orders Orders - JACKSON CASTLE MD Procedure Category Date Status Time Code Status CODE 05/21/25 Transmitted 10:50 Vital Signs MARIKA 05/21/25 In Process 10:50 Review Orders With MARIKA 05/21/25 In Process Adm. 10:50 Consistent DIET 05/21/25 Transmitted Carb(Ccho)Diabetes Lunch Sodium Chloride Lock PHA 05/21/25 In Process (Saline Lock Ns) 14:00 Lorazepam Tablet PHA 05/21/25 In Process (Ativan Tablet) 11:00 Acetaminophen Tablet PHA 05/21/25 In Process (Tylenol Tablet) 11:00 Notify Of Changes MARIKA 05/21/25 In Process From Base 10:50 Advance Directive MARIKA 05/21/25 In Process 10:50 Urine Bacterial NATHALY 05/21/25 In Process Culture 10:50 Patient Condition ORDERS 05/21/25 Transmitted 10:50 Allergies MARIKA 05/21/25 In Process 10:50 Hydrocodone-Acet PHA 05/21/25 In Process 5/325mg Tab ([place] 11:00 Ondansetron Hcl PHA 05/21/25 In Process (Zofran) 11:00 Morphine Sulfate PHA 05/21/25 In Process Injection 11:00 Nitroglycerin PHA 05/21/25 In Process Sublingual (Ntrostat 11:00 Morphine Sulfate PHA 05/21/25 In Process Injection 11:00 Stat Ekg For Chest MARIKA 05/21/25 In Process Pain 10:50 Notify Of Changes MARIKA 05/21/25 In Process From Base 10:50 Lining Repairer For MARIKA 05/21/25 In Process 24 Hours 10:50 Emergency Dysrhythmia MARIKA 05/21/25 In Process Protocol 10:50 Rhythm Strips Once MARIKA 05/21/25 In Process Every Shift 10:50 Oxygen By Nasal RT 05/21/25 Transmitted Cannula 10:50 Admit ADMIT 05/21/25 Transmitted 11:14 Hepatitis B Surface LAB 05/21/25 In Process Antigen 14:38 Hepatitis C Antibody LAB 05/21/25 In Process 14:38 Mrsa Screen ANTHALY 05/21/25 In Process 19:47 Chest Portable XY 05/22/25 Resulted 05:54 Drug Screen LAB 05/22/25 Transmitted 09:56 Urinalysis LAB 05/22/25 Transmitted 09:56 Date of Service: May 22, 2025 Billing Provider: JACKSON CASTLE MD Common Visit Codes: [id number] CARE 30-74 MIN JACKSON CASTLE MD May 22, 2025 10:00
--- NOTE | 2025-05-22 10:08 | DVHPN2 ---
Consult Progress Note Date Seen: May 22, 2025 Subjective Review of Systems: CVS:Normal, RESPIRATORY:Normal, NEURO:Normal Objective vital signs Vital Sign Date Time Temp Pulse Resp B/P (MAP) Pulse Ox O2 Delivery O2 Flow Rate FiO2 05/22/25 08:00 69 05/22/25 08:00 18 93 Nasal Cannula* 4 36 05/22/25 08:00 98.0 93/54 (67) 98.0 Total Intake and Output 05/21/25 05/21/25 05/22/25 15:00 23:00 07:00 Intake Total 240 ml 100 ml Output Total 150 ml Balance 90 ml 100 ml medications Current Medications Medications Dose Ordered Sig/Lacey Route Start Time Stop Time Status Last Admin Dose Admin Sodium Chloride 10 ml Q8HR IV 05/21/25 14:00 05/22/25 06:00 10 ML Lorazepam 0.5 mg Q6HP PRN PO 05/21/25 11:00 Acetaminophen 650 mg Q6HP PRN PO 05/21/25 11:00 Acetaminophen/ Hydrocodone Bitart 1 tab Q4HP PRN PO 05/21/25 11:00 Ondansetron HCl 4 mg Q4HP PRN IV 05/21/25 11:00 05/21/25 22:16 4 MG Morphine Sulfate 2 mg Q4HPRN PRN IV 05/21/25 11:00 Nitroglycerin 0.4 mg Q5MINP PRN SL 05/21/25 11:00 Morphine Sulfate 2 mg Q30M PRN IV 05/21/25 11:00 05/22/25 03:21 2 MG Aspirin 81 mg DAILY PO 05/22/25 10:00 Clopidogrel Bisulfate 75 mg DAILY PO 05/22/25 10:00 Atorvastatin Calcium 40 mg HS PO 05/21/25 22:00 05/21/25 22:16 40 MG Metoprolol Succinate 25 mg DAILY PO 05/22/25 10:00 Empaglifozin 10 mg DAILY PO 05/22/25 10:00 Sacubitril/ Valsartan 0.5 tab BID PO 05/21/25 22:00 05/21/25 22:16 0.5 TAB Examination: LUNGS:Normal, CVS:Normal (ST-Elevation on ceiling installer), NEURO:Normal laboratory and microbiology Laboratory Tests 05/22/25 05:43 Test 05/22/25 05:43 Range/Units Serum Glucose 113 H 74-106 mg/dL Problem List/Assessment/Plan Problem List/Assessment/Plan Acute inferior wall myocardial infarction De Simone compensated HFmrEF Aneurysmal ascending aorta Pertinent family history for CV disease Acute kidney injury, likely JAVIER Borderline dyslipidemia Plan/Recommendation (Dr. Sepulveda) The patient with an acute myocardial infarction underwent a successful PTCA with stent placement with thrombectomy of the LAD x 1 DELFIN. Ventriculography revealed an LVEF of 40%. Unable to initiate GDMT for HFrEF given borderline BPs in addition to YUNI. Please adjust according to lab work and hemodynamics. The patient could potentially benefit from preload and afterload reduction. In the meantime, continue dual-antiplatelet therapy (uninterrupted x 1 year) and high- intensity statin. Repeat a TTE within 6 weeks to further evaluate LV function. In-patient TTE reading is pending at this time. Follow-up with a primary control board operator within 1-2 weeks post-discharge. Counseled on risk factor modification including Mediterranean diet, medical compliance with medical therapy and routine cardiology visits. Consider judicious IVF for renal hydration if deemed necessary. Kindly call if in need to further recommendations. Thank you for allowing us to participate in this patient's care. Critical care time: 30 min. This medical document was created using an electronic medical record system with voice recognition software and computerized dictation system. Although this document has been carefully reviewed, there might still be some phonetic and typographical errors. Occasional wrong-word or ``sound-alike substitutions may have occurred due to the inherent limitations of voice recognition software. These areas are purely typographical due to imperfections of the software programs and do not reflect any compromise in the patient's medical care. Please read the chart carefully and recognize, using context, where these substitutions have occurred. Plan discussed with: Patient, Other Date of Service: May 22, 2025 Billing Provider: EDWINA OLIVARES Cardiology Common Codes: [id number] CARE 30-74 MIN EDWINA OLIVARES May 22, 2025 10:07
[2025-05-22] MEDS: CLOPIDOGREL BISULFATE 75 MG TAB PO SCH (10:12)
[2025-05-22 10:37] LABS: Amphetamine Screen, Urine Neg (NEGATIVE)
[2025-05-22 10:40] LABS: Hepatitis B Surface Antigen Negative (Negative); Hepatitis C Antibody Negative (Negative)
[2025-05-22 10:44] LABS: Barbiturate Scree,Urine Neg (NEGATIVE); Benzodiazephine Screen, Urine Pos (NEGATIVE); Cannabinoid Screen, Urine Neg (NEGATIVE); Cocaine Screen, Urine Neg (NEGATIVE); Opiate Scree,Urine Pos (NEGATIVE); Phencyclidine Screen, Urine Neg (NEGATIVE)
[2025-05-22 10:48] LABS: Urine Budding Yeast OCCASIONAL /hpf (None Seen); Urine Protein, UAD 1+ (Negative)
[2025-05-22] MEDS: HYDROcodone-ACET 5/325MG TAB PO PRN (23:31)
[2025-05-23] VITALS (26 sets, daily range): BP systolic 92–152; BP diastolic 42–90; PULSE 66–105; RESP 12–30; TEMP 98.3–99.7; O2SAT 86–100
[2025-05-23] MEDS: ACETAMINOPHEN 325 MG TAB PO PRN (05:22)
[2025-05-23 06:26] LABS: Hematocrit 42.3 % (41.0-53.0); Hemoglobin 14.6 g/dL (13.5-17.5); Mean Corpuscular Hemoglobin 32.8 pg (28.0-32.0); Mean Corpuscular Volume 95.0 fL (80.0-100.0); Nucleated Red Blood Cells % 0.1 %
[2025-05-23 06:42] LABS: Anion Gap 9 (5-15); Calcium 8.9 mg/dL (8.7-10.4); Carbon Dioxide 23 mmol/L (20-31); Chloride 99 mmol/L (98-107); Potassium 4.2 mmol/L (3.5-5.1)
[2025-05-23 06:43] LABS: BUN/Creatinine Ratio 23.8 (10.0-20.0); Glucose 95 mg/dL (74-106)
[2025-05-23 06:44] LABS: Magnesium 2.1 mg/dL (1.6-2.6); Total Protein 8.2 g/dL (5.7-8.2)
[2025-05-23 06:45] LABS: Albumin 3.6 g/dL (3.2-4.8); Bilirubin, Total 0.8 mg/dL (0.2-1.0)
[2025-05-23 06:46] LABS: Alanine Aminotransferase 74 U/L (7-40); Alkaline Phosphatase 119 U/L (46-116); Blood Urea Nitrogen 41 mg/dL (9-23); Sodium 131 mmol/L (136-145)
--- NOTE | 2025-05-23 10:33 | DVH ---
Indication: SOB Technique: CT axial images of the chest are obtained without contrast. Coronal and sagittal reformats were obtained. Radiation Dose Information: CTDI volume is 22.02 mGy. Dose-length product is 802 mGy*cm Comparison: None FINDINGS: Trachea patent. No pneumothorax. Low lung volumes. Right lower lobe airspace consolidation. Developi ng right middle lobe airspace consolidation. Bilateral atelectasis. Small right pleural effusion. Tin y left pleural effusion. Elevation right hemidiaphragm Heart enlarged. Coronary artery calcification disease enlargement of the ascending aorta to 4.7 x 5. 2 cm. No supraclavicular, axillary lymphadenopathy. Colonic diverticular disease. Large volume stool within the imaged portions of the colon. IMPRESSION: Limited evaluation without contrast. Right lower lobe airspace consolidation. Developing right middle lobe consolidation. Bilateral atele ctasis. Small right, tiny left pleural effusions. Enlargement of the ascending aorta up to 5.2 cm. Recommend thoracic surgery consultation. Coronary artery calcification disease. Elevation right hemidiaphragm. Low lung volumes. Large volume stool within the imaged portion of the colon. Colonic diverticular disease. Other findings as described.
--- NOTE | 2025-05-23 10:53 | DVHPN2 ---
Subjective Seen and examined at bedside. Patient is on 2L oxygen. CT Chest done, possible aspiration PNA. Changes from previous H/P or p: No Changes Eyes: No Pain, No Vision change, No Conjunctivae inflammation, No Eyelid inflammation, No Other, No Redness ENT: No Ear pain, No Ear discharge, No Nose pain, No Nose discharge, No Nose congestion, No Mouth pain, No Mouth swelling, No Throat pain, No Throat swelling, No Other Cardiovascular: No Chest Pain, No Palpitations, No Orthopnea, No Paroxysmal Noc. Dyspnea, No Edema, No Lt Headedness, No Other Respiratory: No Cough, No Dry; Shortness of breath; No SOB with excertion, No Wheezing, No Hemoptysis, No Pleuritic Pain, No Sputum, No Other Gastrointestinal: No Nausea, No Vomiting, No Abdominal Pain, No Diarrhea, No Constipation, No Melena, No Hematochezia, No Other Genitourinary: No Dysuria, No Frequency, No Incontinence, No Hematuria, No Retention, No Other Musculoskeletal: No other, No neck pain, No shoulder pain, No arm pain, No back pain, No hand pain, No leg pain, No foot pain Skin: No Rash, No Lesions, No Jaundice, No Bruising, No Other Objective Vitals Vital Signs Date Time Temp Pulse Resp B/P (MAP) Pulse Ox O2 Delivery O2 Flow Rate FiO2 05/23/25 08:00 73 05/23/25 07:59 12 93 Nasal Cannula* 2 28 05/23/25 07:00 99.6 100/56 (71) 99.6 Intake/Output Intake and Output 05/23/25 07:00 Intake Total 580 ml Output Total 350 ml Balance 230 ml Intake Oral 580 ml Output Urine Total 350 ml # Voids 1 Exam Gen: in bed NAD Cvs: N S1/S2, RRR Resp: Diminished b/l Abd: Soft, NT Farm Supervisor: AAO x 4 Medications Current Medications Medications Dose Ordered Sig/Lacey Route Start Time Stop Time Status Last Admin Dose Admin Sodium Chloride 10 ml Q8HR IV 05/21/25 14:00 05/23/25 06:10 10 ML Lorazepam 0.5 mg Q6HP PRN PO 05/21/25 11:00 Acetaminophen 650 mg Q6HP PRN PO 05/21/25 11:00 05/23/25 05:22 650 MG Acetaminophen/ Hydrocodone Bitart 1 tab Q4HP PRN PO 05/21/25 11:00 05/22/25 23:31 1 TAB Ondansetron HCl 4 mg Q4HP PRN IV 05/21/25 11:00 05/21/25 22:16 4 MG Morphine Sulfate 2 mg Q4HPRN PRN IV 05/21/25 11:00 Nitroglycerin 0.4 mg Q5MINP PRN SL 05/21/25 11:00 Morphine Sulfate 2 mg Q30M PRN IV 05/21/25 11:00 05/22/25 03:21 2 MG Aspirin 81 mg DAILY PO 05/22/25 10:00 05/23/25 10:39 81 MG Clopidogrel Bisulfate 75 mg DAILY PO 05/22/25 10:00 05/23/25 10:39 75 MG Laboratory Results Laboratory Tests 05/23/25 05:17 Chemistry Test 05/23/25 05:17 Albumin 3.6 g/dL (3.2-4.8) Calcium Level 8.9 mg/dL (8.7-10.4) Magnesium Level 2.1 mg/dL (1.6-2.6) Phosphorus Level 3.1 mg/dL (2.4-5.1) Total Protein 8.2 g/dL (5.7-8.2) LFT Test 05/23/25 05:17 Alanine Aminotransferase (ALT) 74 U/L (7-40) H Alkaline Phosphatase 119 U/L (46-116) H Aspartate Amino Transferase (AST) 109 U/L (13-40) H Total Bilirubin 0.8 mg/dL (0.2-1.0) Urinalysis Test 05/22/25 10:00 Urine Color Light-orange (Yellow) Urine Clarity Turbid (Clear) H Urine pH 5.5 (5.0-9.0) Urine Specific [place] 1.030 (1.001-1.035) Urine Protein 1+ (Negative) H Urine Ketones Negative (Negative) Urine Blood Negative /uL (Negative) Urine Nitrite Negative (Negative) Urine Bilirubin Negative (Negative) Urine Urobilinogen 4 mg/dL (Negative) H Urine Leukocyte Esterase Negative /uL (Negative) Urine RBC 1 /hpf (0 - 3) Urine Microscopic WBC < 1 /HPF (0-3) Urine Squamous Epithelial Cells Few /hpf (<5) Urine Bacteria Few /hpf (None Seen) H Urine Mucus Few (None Seen) Urine Yeast (Budding) Occasional /hpf (None Urine Glucose Normal mg/dL (Normal) Microbiology Microbiology Date/Time Source Procedure Growth Status 05/22/25 03:30 Urine - Suprapubic Aspirate Urine Culture - Preliminary Resulted 05/21/25 15:00 Nose MRSA Screen - Final Complete Assessment/Plan Assessment/Plan # STEMI - s/p LHC with PCI to LAD # Ascending Aortic Aneurysm - Outpatient followup with CT Surgery # Acute Resp Failure due to possible Aspiration PNA - Titrate Oxygen down - ABx - Sputum Sample # Possible Acute Systolic CHF - Consider Lasix when BP improved # YUNI due to VMN vs ATN - Monitor # BPH - Resume Flomax on DC # Transaminitis - HOLD Statins Plan discussed with: Patient My Orders Orders - JACKSON CASTLE MD Procedure Category Date Status Time * Nautical Instrument Mechanic CONS 05/22/25 Transmitted Consult Urine Sodium LAB 05/23/25 Logged 09:02 Urine Creatinine LAB 05/23/25 Logged 09:02 Osmolality Urine LAB 05/23/25 Logged 09:02 Urine LAB 05/23/25 Logged Protein/Creatinine Kidney US 05/23/25 Taken 09:[address] 05/23/25 Resulted 09:02 Comprehensive LAB 05/24/25 Verified Metabolic Panel 04:00 Azithromycin Tablet PHA 05/23/25 Verified (Zithromax Tablet) 11:00 Azithromycin Tablet PHA 05/24/25 Verified (Zithromax Tablet) 10:00 Albuterol Medneb PHA 05/23/25 Verified (Ventolin Medneb) 11:00 Ipratropium Medneb PHA 05/23/25 Verified (Atrovent Medneb) 11:00 Sputum Induction RT 05/23/25 Verified 10:49 Respiratory Culture NATHALY 05/23/25 Verified W/ Gs 10:49 Zosyn Extended PHA 05/23/25 Verified Infusion 12:00 Bisacodyl Ec Tablet PHA 05/23/25 Verified (Dulcolax Ec Tablet) 11:00 Date of Service: May 23, 2025 Billing Provider: JACKSON CASTLE MD Common Visit Codes: [id number] INP/OBS CARE(HIGH) JACKSON CASTLE MD May 23, 2025 10:53
[2025-05-23] MEDS ORDERED: ALBUTEROL SULF 2.5 MG/0.5ML(0.5%) NEB SOLN NEB PRN (11:00)
[2025-05-23] MEDS ORDERED: IPRATROPIUM BROM 0.5 MG/2.5ML INH SOL NEB PRN (11:00)
[2025-05-23 12:06] LABS: Protein, Urine 51.3 mg/dL (1-14)
--- NOTE | 2025-05-23 12:20 | DVH ---
INDICATION: YUNI TECHNIQUE: Multiple real-time sonographic images of the kidneys and bladder were obtained. COMPARISON: None FINDINGS: The right kidney measures 9 cm in length, which is normal in size. There is normal echogeni city of the right kidney. No hydronephrosis. The left kidney measures 10 cm in length, which is normal in size. There is normal echogenicity of th e left kidney. Trace right hydronephrosis. IMPRESSION: Trace LEFT hydronephrosis
[2025-05-23 12:57] LABS: Blood Urea Nitrogen 35.0 mg/dL (9-23)
[2025-05-23] MEDS: LIDOCAINE 2% JELLY 11ml (GLYDO) UR ONE (14:55)
[2025-05-23] MEDS: BISACODYL 5 MG EC TAB PO ONE (15:26)
[2025-05-23] MEDS: AZITHROMYCIN 250 MG TAB PO ONE (15:27)
[2025-05-23] MEDS: SODIUM CHLORIDE 0.9% 500 ML IV ONE (15:28)
[2025-05-23] MEDS: PIPERACILLIN-TAZOB 3.375GM 100 ML IV SCH (15:29)
[2025-05-24] VITALS (10 sets, daily range): BP systolic 102–134; BP diastolic 62–85; PULSE 56–77; RESP 17–20; TEMP 97.2–99; O2SAT 92–95
[2025-05-24 06:57] LABS: Alkaline Phosphatase 108 U/L (46-116); Anion Gap 10 (5-15); BUN/Creatinine Ratio 19.4 (10.0-20.0); Calcium 8.7 mg/dL (8.7-10.4); Carbon Dioxide 22 mmol/L (20-31); Chloride 100 mmol/L (98-107); Potassium 4.0 mmol/L (3.5-5.1); Total Protein 8.0 g/dL (5.7-8.2)
[2025-05-24 06:58] LABS: Albumin 3.6 g/dL (3.2-4.8)
[2025-05-24 06:59] LABS: Bilirubin, Total 0.7 mg/dL (0.2-1.0)
[2025-05-24 07:02] LABS: Alanine Aminotransferase 59 U/L (7-40); Blood Urea Nitrogen 31 mg/dL (9-23); Glucose 110 mg/dL (74-106); Sodium 132 mmol/L (136-145)
[2025-05-24] MEDS: AZITHROMYCIN 250 MG TAB PO SCH (09:25)
--- NOTE | 2025-05-24 13:12 | DVHPN2 ---
Subjective Seen and examined at bedside. Patient is on 2L oxygen. Titrate oxygen down. Possible DC to SNF tomorrow. Changes from previous H/P or p: No Changes Eyes: No Pain, No Vision change, No Conjunctivae inflammation, No Eyelid inflammation, No Other, No Redness ENT: No Ear pain, No Ear discharge, No Nose pain, No Nose discharge, No Nose congestion, No Mouth pain, No Mouth swelling, No Throat pain, No Throat swelling, No Other Cardiovascular: No Chest Pain, No Palpitations, No Orthopnea, No Paroxysmal Noc. Dyspnea, No Edema, No Lt Headedness, No Other Respiratory: No Cough, No Dry, No SOB with excertion, No Wheezing, No Hemoptysis, No Pleuritic Pain, No Sputum, No Other Gastrointestinal: No Nausea, No Vomiting, No Abdominal Pain, No Diarrhea, No Constipation, No Melena, No Hematochezia, No Other Genitourinary: No Dysuria, No Frequency, No Incontinence, No Hematuria, No Retention, No Other Musculoskeletal: No other, No neck pain, No shoulder pain, No arm pain, No back pain, No hand pain, No leg pain, No foot pain Skin: No Rash, No Lesions, No Jaundice, No Bruising, No Other Objective Vitals Vital Signs Date Time Temp Pulse Resp B/P (MAP) Pulse Ox O2 Delivery O2 Flow Rate FiO2 05/24/25 10:00 93 Nasal Cannula 3.0 05/24/25 10:00 32 05/24/25 08:45 97.5 61 19 118/62 (80) 97.5 Intake/Output Intake and Output 05/24/25 07:00 Intake Total 1060 ml Output Total 1700 ml Balance -640 ml Intake Oral 460 ml IV Total 600 ml Output Urine Total 1700 ml Exam Gen: in bed NAD Cvs: N S1/S2, RRR Resp: Diminished b/l Abd: Soft, NT Barrel Lathe Operator Inside: AAO x 4 Medications Current Medications Medications Dose Ordered Sig/Lacey Route Start Time Stop Time Status Last Admin Dose Admin Sodium Chloride 10 ml Q8HR IV 05/21/25 14:00 05/24/25 12:52 10 ML Lorazepam 0.5 mg Q6HP PRN PO 05/21/25 11:00 Acetaminophen 650 mg Q6HP PRN PO 05/21/25 11:00 05/23/25 05:22 650 MG Acetaminophen/ Hydrocodone Bitart 1 tab Q4HP PRN PO 05/21/25 11:00 05/22/25 23:31 1 TAB Ondansetron HCl 4 mg Q4HP PRN IV 05/21/25 11:00 05/21/25 22:16 4 MG Morphine Sulfate 2 mg Q4HPRN PRN IV 05/21/25 11:00 Nitroglycerin 0.4 mg Q5MINP PRN SL 05/21/25 11:00 Morphine Sulfate 2 mg Q30M PRN IV 05/21/25 11:00 05/22/25 03:21 2 MG Aspirin 81 mg DAILY PO 05/22/25 10:00 05/24/25 09:25 81 MG Clopidogrel Bisulfate 75 mg DAILY PO 05/22/25 10:00 05/24/25 09:25 75 MG Azithromycin 250 mg DAILY PO 05/24/25 10:00 05/24/25 09:25 250 MG Albuterol 2.5 mg Q6HPRN PRN NEB 05/23/25 11:00 Ipratropium [place] 0.5 mg Q6HPRN PRN NEB 05/23/25 11:00 Piperacillin Sod/ Tazobactam Sod 100 ml @ 25 mls/hr Q8HR IV 05/23/25 14:00 05/24/25 12:56 25 MLS/HR Laboratory Results Laboratory Tests 05/23/25 05:17 05/24/25 05:24 Chemistry Test 05/24/25 05:24 Albumin 3.6 g/dL (3.2-4.8) Calcium Level 8.7 mg/dL (8.7-10.4) Total Protein 8.0 g/dL (5.7-8.2) LFT Test 05/24/25 05:24 Alanine Aminotransferase (ALT) 59 U/L (7-40) H Alkaline Phosphatase 108 U/L (46-116) Aspartate Amino Transferase (AST) 74 U/L (13-40) H Total Bilirubin 0.7 mg/dL (0.2-1.0) Urinalysis Test 05/22/25 10:00 05/23/25 11:34 Urine Color Light-orange (Yellow) Urine Clarity Turbid (Clear) H Urine pH 5.5 (5.0-9.0) Urine Specific [place] 1.030 (1.001-1.035) Urine Protein 1+ (Negative) H Urine Ketones Negative (Negative) Urine Blood Negative /uL (Negative) Urine Nitrite Negative (Negative) Urine Bilirubin Negative (Negative) Urine Urobilinogen 4 mg/dL (Negative) H Urine Leukocyte Esterase Negative /uL (Negative) Urine RBC 1 /hpf (0 - 3) Urine Microscopic WBC < 1 /HPF (0-3) Urine Squamous Epithelial Cells Few /hpf (<5) Urine Bacteria Few /hpf (None Seen) H Urine Mucus Few (None Seen) Urine Yeast (Budding) Occasional /hpf (None Urine Glucose Normal mg/dL (Normal) Urine Osmolality 649 mOsm/kg Urine Creatinine 133.29 mg/dL (30.0-125.0) H Urine Protein/Creatinine Ratio 0.38 Urine Sodium 31 mmol/L (40-220) L Urine Total Protein 51.3 mg/dL (1-14) H Microbiology Microbiology Date/Time Source Procedure Growth Status 05/22/25 03:30 Urine - Suprapubic Aspirate Urine Culture - Final Complete 05/21/25 15:00 Nose MRSA Screen - Final Complete Assessment/Plan Assessment/Plan # STEMI - s/p [facility] with PCI to LAD # Ascending Aortic Aneurysm - Outpatient followup with CT Surgery # Acute Resp Failure due to possible Aspiration PNA - Titrate Oxygen down - ABx - Sputum Sample # Possible Acute Systolic CHF - Consider Lasix when BP improved # YUNI due to VMN vs ATN - Monitor # BPH - Resume Flomax on DC # Transaminitis - HOLD Statins Plan discussed with: Patient My Orders Orders - JACKSON CASTLE MD Procedure Category Date Status Time Transfer Orders XFER 05/23/25 Transmitted 15:21 * Key Entry Operator CONS 05/24/25 Transmitted Consult Basic Metabolic Panel LAB 05/25/25 Verified 04:00 Complete Blood Count LAB 05/25/25 Verified 04:00 Date of Service: May 24, 2025 Billing Provider: JACKSON CASTLE MD Common Visit Codes: [id number] INP/OBS CARE(HIGH) JACKSON CASTLE MD May 24, 2025 13:12
[2025-05-24] MEDS: FUROSEMIDE 20 MG/2 ML VIAL IV ONE (13:36)
[2025-05-25] VITALS (9 sets, daily range): BP systolic 104–125; BP diastolic 63–83; PULSE 60–72; RESP 16–19; TEMP 97.8–98.6; O2SAT 16–94
[2025-05-25 07:40] LABS: Hematocrit 44.7 % (41.0-53.0); Hemoglobin 15.6 g/dL (13.5-17.5); Mean Corpuscular Hemoglobin 32.9 pg (28.0-32.0); Mean Corpuscular Volume 94.2 fL (80.0-100.0); Nucleated Red Blood Cells % 0.2 %
[2025-05-25 07:49] LABS: Albumin 3.6 g/dL (3.2-4.8); Alkaline Phosphatase 104 U/L (46-116); Anion Gap 12 (5-15); BUN/Creatinine Ratio 16.8 (10.0-20.0); Calcium 8.9 mg/dL (8.7-10.4); Carbon Dioxide 20 mmol/L (20-31); Chloride 102 mmol/L (98-107); Potassium 3.7 mmol/L (3.5-5.1)
[2025-05-25 07:50] LABS: Bilirubin, Total 0.6 mg/dL (0.2-1.0)
[2025-05-25 07:51] LABS: Alanine Aminotransferase 57 U/L (7-40); Blood Urea Nitrogen 28 mg/dL (9-23); Glucose 130 mg/dL (74-106); Sodium 134 mmol/L (136-145); Total Protein 8.3 g/dL (5.7-8.2)
[2025-05-25 11:07] LABS: Prostate Specific Antigen 1.0 ng/mL (0.0-4.0)
--- NOTE | 2025-05-25 11:49 | DVHPN2 ---
Reviewed: Care Plan, H&P, Labs, Medications, Previous Orders, Radiology Changes from previous H/P or p: No Changes Eyes: No Pain, No Vision change, No Conjunctivae inflammation, No Eyelid inflammation, No Other, No Redness ENT: No Ear pain, No Ear discharge, No Nose pain, No Nose discharge, No Nose congestion, No Mouth pain, No Mouth swelling, No Throat pain, No Throat swelling, No Other Cardiovascular: No Chest Pain, No Palpitations, No Orthopnea, No Paroxysmal Noc. Dyspnea, No Edema, No Lt Headedness, No Other Respiratory: No Cough, No Dry, No SOB with excertion, No Wheezing, No Hemoptysis, No Pleuritic Pain, No Sputum, No Other Gastrointestinal: No Nausea, No Vomiting, No Abdominal Pain, No Diarrhea, No Constipation, No Melena, No Hematochezia, No Other Genitourinary: No Dysuria, No Frequency, No Incontinence, No Hematuria, No Retention, No Other Musculoskeletal: No other, No neck pain, No shoulder pain, No arm pain, No back pain, No hand pain, No leg pain, No foot pain Skin: No Rash, No Lesions, No Jaundice, No Bruising, No Other Objective Vitals Vital Signs Date Time Temp Pulse Resp B/P (MAP) Pulse Ox O2 Delivery O2 Flow Rate FiO2 05/25/25 10:08 93 Nasal Cannula* 2 28 05/25/25 08:38 97.8 62 16 115/75 (88) 97.8 Intake/Output Intake and Output 05/25/25 07:00 Intake Total 2720 ml Output Total 2850 ml Balance -130 ml Intake Oral 1480 ml Tube Feeding 1240 ml Output Urine Total 2850 ml Medications Current Medications Medications Dose Ordered Sig/Lacey Route Start Time Stop Time Status Last Admin Dose Admin Sodium Chloride 10 ml Q8HR IV 05/21/25 14:00 05/25/25 05:26 10 ML Lorazepam 0.5 mg Q6HP PRN PO 05/21/25 11:00 Acetaminophen 650 mg Q6HP PRN PO 05/21/25 11:00 05/24/25 23:21 650 MG Acetaminophen/ Hydrocodone Bitart 1 tab Q4HP PRN PO 05/21/25 11:00 05/22/25 23:31 1 TAB Ondansetron HCl 4 mg Q4HP PRN IV 05/21/25 11:00 9/2/25 22:16 4 MG Morphine Sulfate 2 mg Q4HPRN PRN IV 05/21/25 11:00 Nitroglycerin 0.4 mg Q5MINP PRN SL 05/21/25 11:00 Morphine Sulfate 2 mg Q30M PRN IV 05/21/25 11:00 05/22/25 03:21 2 MG Aspirin 81 mg DAILY PO 05/22/25 10:00 05/25/25 09:17 81 MG Clopidogrel Bisulfate 75 mg DAILY PO 05/22/25 10:00 05/25/25 09:17 75 MG Azithromycin 250 mg DAILY PO 05/24/25 10:00 05/25/25 09:16 250 MG Albuterol 2.5 mg Q6HPRN PRN NEB 05/23/25 11:00 Cancel Ipratropium [place] 0.5 mg Q6HPRN PRN NEB 05/23/25 11:00 Cancel Piperacillin Sod/ Tazobactam Sod 100 ml @ 25 mls/hr Q8HR IV 05/23/25 14:00 05/25/25 05:11 25 MLS/HR Laboratory Results Laboratory Tests 05/25/25 06:22 Chemistry Test 05/25/25 06:22 Albumin 3.6 g/dL (3.2-4.8) Calcium Level 8.9 mg/dL (8.7-10.4) Total Protein 8.3 g/dL (5.7-8.2) H LFT Test 05/25/25 06:22 Alanine Aminotransferase (ALT) 57 U/L (7-40) H Alkaline Phosphatase 104 U/L (46-116) Aspartate Amino Transferase (AST) 61 U/L (13-40) H Total Bilirubin 0.6 mg/dL (0.2-1.0) Urinalysis Test 05/22/25 10:00 05/23/25 11:34 Urine Color Light-orange (Yellow) Urine Clarity Turbid (Clear) H Urine pH 5.5 (5.0-9.0) Urine Specific [place] 1.030 (1.001-1.035) Urine Protein 1+ (Negative) H Urine Ketones Negative (Negative) Urine Blood Negative /uL (Negative) Urine Nitrite Negative (Negative) Urine Bilirubin Negative (Negative) Urine Urobilinogen 4 mg/dL (Negative) H Urine Leukocyte Esterase Negative /uL (Negative) Urine RBC 1 /hpf (0 - 3) Urine Microscopic WBC < 1 /HPF (0-3) Urine Squamous Epithelial Cells Few /hpf (<5) Urine Bacteria Few /hpf (None Seen) H Urine Mucus Few (None Seen) Urine Yeast (Budding) Occasional /hpf (None Urine Glucose Normal mg/dL (Normal) Urine Osmolality 649 mOsm/kg Urine Creatinine 133.29 mg/dL (30.0-125.0) H Urine Protein/Creatinine Ratio 0.38 Urine Sodium 31 mmol/L (40-220) L Urine Total Protein 51.3 mg/dL (1-14) H Microbiology Microbiology Date/Time Source Procedure Growth Status 05/22/25 03:30 Urine - Suprapubic Aspirate Urine Culture - Final Complete 05/21/25 15:00 Nose MRSA Screen - Final Complete Labs and/or images reviewed: Labs reviewed by me, Image(s) reviewed by me Assessment/Plan Assessment/Plan Covering for Dr. gil Acute ST-elevation AR status post left heart catheterization with stenting of LAD by Dr Greene Ascending aortic aneurysm outpatient follow up Acute on chronic respiratory failure possibly due to aspiration pneumonia Possible acute systolic CHF exacerbation: Lasix YUNI BPH Continue Current management Plan discussed with: Patient Date of Service: May 25, 2025 Billing Provider: AYESHA JOYNER MD Common Visit Codes: [id number] INP/OBS CARE(HIGH) AYESHA JOYNER MD May 25, 2025 11:49
[2025-05-26] VITALS (9 sets, daily range): BP systolic 123–151; BP diastolic 68–84; PULSE 58–78; RESP 16–19; TEMP 97.7–98.9; O2SAT 91–95
--- NOTE | 2025-05-26 12:52 | DVHPN2 ---
Reviewed: Care Plan, H&P, Labs, Medications, Previous Orders, Radiology Changes from previous H/P or p: No Changes Eyes: No Pain, No Vision change, No Conjunctivae inflammation, No Eyelid inflammation, No Other, No Redness ENT: No Ear pain, No Ear discharge, No Nose pain, No Nose discharge, No Nose congestion, No Mouth pain, No Mouth swelling, No Throat pain, No Throat swelling, No Other Cardiovascular: No Chest Pain, No Palpitations, No Orthopnea, No Paroxysmal Noc. Dyspnea, No Edema, No Lt Headedness, No Other Respiratory: No Cough, No Dry, No SOB with excertion, No Wheezing, No Hemoptysis, No Pleuritic Pain, No Sputum, No Other Gastrointestinal: No Nausea, No Vomiting, No Abdominal Pain, No Diarrhea, No Constipation, No Melena, No Hematochezia, No Other Genitourinary: No Dysuria, No Frequency, No Incontinence, No Hematuria, No Retention, No Other Musculoskeletal: No other, No neck pain, No shoulder pain, No arm pain, No back pain, No hand pain, No leg pain, No foot pain Skin: No Rash, No Lesions, No Jaundice, No Bruising, No Other Objective Vitals Vital Signs Date Time Temp Pulse Resp B/P (MAP) Pulse Ox O2 Delivery O2 Flow Rate FiO2 05/26/25 12:48 97.9 58 16 123/82 (96) 93 97.9 05/26/25 10:00 Nasal Cannula 2.0 05/26/25 10:00 28 Intake/Output Intake and Output 05/26/25 07:00 Intake Total 2130 ml Output Total 1750 ml Balance 380 ml Intake Oral 1930 ml IV Total 200 ml Output Urine Total 1750 ml Medications Current Medications Medications Dose Ordered Sig/Lacey Route Start Time Stop Time Status Last Admin Dose Admin Sodium Chloride 10 ml Q8HR IV 05/21/25 14:00 05/26/25 05:18 10 ML Lorazepam 0.5 mg Q6HP PRN PO 05/21/25 11:00 Acetaminophen 650 mg Q6HP PRN PO 05/21/25 11:00 05/24/25 23:21 650 MG Acetaminophen/ Hydrocodone Bitart 1 tab Q4HP PRN PO 05/21/25 11:00 05/22/25 23:31 1 TAB Ondansetron HCl 4 mg Q4HP PRN IV 05/21/25 11:00 05/21/25 22:16 4 MG Morphine Sulfate 2 mg Q4HPRN PRN IV 05/21/25 11:00 Nitroglycerin 0.4 mg Q5MINP PRN SL 05/21/25 11:00 Morphine Sulfate 2 mg Q30M PRN IV 05/21/25 11:00 05/22/25 03:21 2 MG Aspirin 81 mg DAILY PO 05/22/25 10:00 05/26/25 09:27 81 MG Clopidogrel Bisulfate 75 mg DAILY PO 05/22/25 10:00 05/26/25 09:27 75 MG Azithromycin 250 mg DAILY PO 05/24/25 10:00 05/26/25 09:27 250 MG Albuterol 2.5 mg Q6HPRN PRN NEB 05/23/25 11:00 Cancel Ipratropium [place] 0.5 mg Q6HPRN PRN NEB 05/23/25 11:00 Cancel Piperacillin Sod/ Tazobactam Sod 100 ml @ 25 mls/hr Q8HR IV 05/23/25 14:00 05/26/25 05:18 25 MLS/HR Laboratory Results Laboratory Tests 05/25/25 06:22 Urinalysis Test 05/22/25 10:00 05/23/25 11:34 Urine Color Light-orange (Yellow) Urine Clarity Turbid (Clear) H Urine pH 5.5 (5.0-9.0) Urine Specific [place] 1.030 (1.001-1.035) Urine Protein 1+ (Negative) H Urine Ketones Negative (Negative) Urine Blood Negative /uL (Negative) Urine Nitrite Negative (Negative) Urine Bilirubin Negative (Negative) Urine Urobilinogen 4 mg/dL (Negative) H Urine Leukocyte Esterase Negative /uL (Negative) Urine RBC 1 /hpf (0 - 3) Urine Microscopic WBC < 1 /HPF (0-3) Urine Squamous Epithelial Cells Few /hpf (<5) Urine Bacteria Few /hpf (None Seen) H Urine Mucus Few (None Seen) Urine Yeast (Budding) Occasional /hpf (None Urine Glucose Normal mg/dL (Normal) Urine Osmolality 649 mOsm/kg Urine Creatinine 133.29 mg/dL (30.0-125.0) H Urine Protein/Creatinine Ratio 0.38 Urine Sodium 31 mmol/L (40-220) L Urine Total Protein 51.3 mg/dL (1-14) H Microbiology Microbiology Date/Time Source Procedure Growth Status 05/22/25 03:30 Urine - Suprapubic Aspirate Urine Culture - Final Complete 05/21/25 15:00 Nose MRSA Screen - Final Complete Labs and/or images reviewed: Labs reviewed by me, Image(s) reviewed by me Assessment/Plan Assessment/Plan Covering for Dr. gil Acute ST-elevation AR status post left heart catheterization with stenting of LAD by Dr Greene Ascending aortic aneurysm outpatient follow up Acute on chronic respiratory failure possibly due to aspiration pneumonia Possible acute systolic CHF exacerbation: Lasix YUNI BPH Continue Current management Constipation Lactulose PO Plan discussed with: Patient My Orders Orders - AYESHA JOYNER MD Procedure Category Date Status Time Pt Request For Service PT 05/26/25 Logged 12:34 Date of Service: May 26, 2025 Billing Provider: AYESHA JOYNER MD Common Visit Codes: [id number] INP/OBS CARE(HIGH) AYESHA JOYNER MD May 26, 2025 12:52
[2025-05-26] MEDS: LACTULOSE 20Gm/30ML SOLN PO ONE (13:48)
[2025-05-27] VITALS (9 sets, daily range): BP systolic 110–143; BP diastolic 67–83; PULSE 65–71; RESP 16–18; TEMP 97.6–98.7; O2SAT 90–98
[2025-05-27] MEDS ORDERED: CARV-214 OR (18:20)
[2025-05-27] MEDS ORDERED: CLOP75TA70 PO (18:20)
[2025-05-27] MEDS ORDERED: ASPI-325 PO (18:20)
[2025-05-27] MEDS ORDERED: LISI-275 PO (18:20)
[2025-05-27] MEDS ORDERED: LEVO500T91 PO (18:20)
--- NOTE | 2025-05-27 18:25 | DVHPN2 ---
Subjective Seen and examined at bedside. For DC tomorrow. Reviewed: Care Plan, H&P, Labs, Medications, Previous Orders, Radiology Changes from previous H/P or p: No Changes Eyes: No Pain, No Vision change, No Conjunctivae inflammation, No Eyelid inflammation, No Other, No Redness ENT: No Ear pain, No Ear discharge, No Nose pain, No Nose discharge, No Nose congestion, No Mouth pain, No Mouth swelling, No Throat pain, No Throat swelling, No Other Cardiovascular: No Chest Pain, No Palpitations, No Orthopnea, No Paroxysmal Noc. Dyspnea, No Edema, No Lt Headedness, No Other Respiratory: No Cough, No Dry, No SOB with excertion, No Wheezing, No Hemoptysis, No Pleuritic Pain, No Sputum, No Other Gastrointestinal: No Nausea, No Vomiting, No Abdominal Pain, No Diarrhea, No Constipation, No Melena, No Hematochezia, No Other Genitourinary: No Dysuria, No Frequency, No Incontinence, No Hematuria, No Retention, No Other Musculoskeletal: No other, No neck pain, No shoulder pain, No arm pain, No back pain, No hand pain, No leg pain, No foot pain Skin: No Rash, No Lesions, No Jaundice, No Bruising, No Other Objective Vitals Vital Signs Date Time Temp Pulse Resp B/P (MAP) Pulse Ox O2 Delivery O2 Flow Rate FiO2 05/27/25 16:49 98.3 66 16 143/72 (95) 94 98.3 05/27/25 09:30 Nasal Cannula* 2 28 Intake/Output Intake and Output 05/27/25 07:00 Intake Total 1420 ml Output Total 1800 ml Balance -380 ml Intake Oral 1320 ml IV Total 100 ml Output Urine Total 1800 ml # Bowel Movements 1 Exam Gen: in bed NAD Cvs: N S1/S2, RRR Resp: BLAE Abd: Soft, NT Nursing Agency Manager: AAO x 4 Medications Current Medications Medications Dose Ordered Sig/Lacey Route Start Time Stop Time Status Last Admin Dose Admin Sodium Chloride 10 ml Q8HR IV 05/21/25 14:00 05/27/25 14:00 10 ML Lorazepam 0.5 mg Q6HP PRN PO 05/21/25 11:00 Acetaminophen 650 mg Q6HP PRN PO 05/21/25 11:00 05/24/25 23:21 650 MG Acetaminophen/ Hydrocodone Bitart 1 tab Q4HP PRN PO 05/21/25 11:00 05/22/25 23:31 1 TAB Ondansetron HCl 4 mg Q4HP PRN IV 05/21/25 11:00 05/21/25 22:16 4 MG Morphine Sulfate 2 mg Q4HPRN PRN IV 05/21/25 11:00 Nitroglycerin 0.4 mg Q5MINP PRN SL 05/21/25 11:00 Morphine Sulfate 2 mg Q30M PRN IV 05/21/25 11:00 05/22/25 03:21 2 MG Aspirin 81 mg DAILY PO 05/22/25 10:00 05/27/25 09:11 81 MG Clopidogrel Bisulfate 75 mg DAILY PO 05/22/25 10:00 05/27/25 09:11 75 MG Azithromycin 250 mg DAILY PO 05/24/25 10:00 05/27/25 09:11 250 MG Albuterol 2.5 mg Q6HPRN PRN NEB 05/23/25 11:00 Cancel Ipratropium [place] 0.5 mg Q6HPRN PRN NEB 05/23/25 11:00 Cancel Piperacillin Sod/ Tazobactam Sod 100 ml @ 25 mls/hr Q8HR IV 05/23/25 14:00 05/27/25 14:00 25 MLS/HR Laboratory Results Laboratory Tests 05/25/25 06:22 Urinalysis Test 05/22/25 10:00 05/23/25 11:34 Urine Color Light-orange (Yellow) Urine Clarity Turbid (Clear) H Urine pH 5.5 (5.0-9.0) Urine Specific [place] 1.030 (1.001-1.035) Urine Protein 1+ (Negative) H Urine Ketones Negative (Negative) Urine Blood Negative /uL (Negative) Urine Nitrite Negative (Negative) Urine Bilirubin Negative (Negative) Urine Urobilinogen 4 mg/dL (Negative) H Urine Leukocyte Esterase Negative /uL (Negative) Urine RBC 1 /hpf (0 - 3) Urine Microscopic WBC < 1 /HPF (0-3) Urine Squamous Epithelial Cells Few /hpf (<5) Urine Bacteria Few /hpf (None Seen) H Urine Mucus Few (None Seen) Urine Yeast (Budding) Occasional /hpf (None Urine Glucose Normal mg/dL (Normal) Urine Osmolality 649 mOsm/kg Urine Creatinine 133.29 mg/dL (30.0-125.0) H Urine Protein/Creatinine Ratio 0.38 Urine Sodium 31 mmol/L (40-220) L Urine Total Protein 51.3 mg/dL (1-14) H Microbiology Microbiology Date/Time Source Procedure Growth Status 05/22/25 03:30 Urine - Suprapubic Aspirate Urine Culture - Final Complete 05/21/25 15:00 Nose MRSA Screen - Final Complete Assessment/Plan Assessment/Plan # STEMI - s/p C with PCI to LAD # Ascending Aortic Aneurysm - Outpatient followup with CT Surgery # Acute Resp Failure due to possible Aspiration PNA - Titrate Oxygen down - ABx # Possible Acute Systolic CHF - Consider Lasix when BP improved # YUNI due to VMN vs ATN - Monitor # BPH - Resume Flomax on DC # Transaminitis - HOLD Statins Plan discussed with: Patient My Orders Orders - JACKSON CASTLE MD Procedure Category Date Status Time * Silver Spray Worker CONS 05/27/25 Transmitted Consult Carvedilol Tablet PHA 05/27/25 Transmitted (Coreg Tablet) 22:00 Lisinopril Tablet PHA 05/27/25 Transmitted (Zestril Tablet) 18:30 Lisinopril Tablet PHA 05/28/25 Transmitted (Zestril Tablet) 10:00 Comprehensive LAB 05/28/25 Verified Metabolic Panel 04:00 Date of Service: May 27, 2025 Billing Provider: JACKSON CASTLE MD Common Visit Codes: [id number] INP/OBS CARE(MOD) JACKSON CASTLE MD May 27, 2025 18:25
[2025-05-27] MEDS: LISINOPRIL 5 MG TAB PO ONE (18:52)
[2025-05-27] MEDS: CARVEDILOL 3.125 MG TAB PO SCH (21:32)
[2025-05-28] VITALS (9 sets, daily range): BP systolic 114–137; BP diastolic 55–84; PULSE 60–92; RESP 16–18; TEMP 36.6; O2SAT 91–96
[2025-05-28] MEDS: LISINOPRIL 5 MG TAB PO SCH (09:10)
[2025-05-28 10:41] LABS: Albumin 3.5 g/dL (3.2-4.8); Alkaline Phosphatase 111 U/L (46-116); Anion Gap 8 (5-15); BUN/Creatinine Ratio 15.2 (10.0-20.0); Bilirubin, Total 1.0 mg/dL (0.2-1.0); Blood Urea Nitrogen 20 mg/dL (9-23); Carbon Dioxide 27 mmol/L (20-31); Chloride 102 mmol/L (98-107); Glucose 102 mg/dL (74-106); Potassium 3.7 mmol/L (3.5-5.1); Sodium 137 mmol/L (136-145); Total Protein 7.8 g/dL (5.7-8.2)
[2025-05-28 10:42] LABS: Alanine Aminotransferase 71 U/L (7-40); Calcium 8.6 mg/dL (8.7-10.4)
--- NOTE | 2025-05-28 14:39 | DVHDS2 ---
Discharge Summary Date of Admission May 21, 2025 at 10:50 Date of Discharge: May 28, 2025 Admitting Diagnosis STEMI Labs/Diagnostic Data: Laboratory Results Test 05/28/25 09:42 05/25/25 06:22 05/23/25 17:13 05/23/25 11:34 Sodium Level 137 mmol/L (136-145) Potassium Level 3.7 mmol/L (3.5-5.1) Chloride Level 102 mmol/L (98-107) Carbon Dioxide Level 27 mmol/L (20-31) Anion Gap 8 (5-15) Blood Urea Nitrogen 20 mg/dL (9-23) Creatinine 1.32 mg/dL (0.700-1.30) Glomerular Filtration Rate Calc 55 mL/min (>90) BUN/Creatinine Ratio 15.2 (10.0-20.0) Serum Glucose 102 mg/dL (74-106) Calcium Level 8.6 mg/dL (8.7-10.4) Total Bilirubin 1.0 mg/dL (0.2-1.0) Aspartate Amino Transferase (AST) 65 U/L (13-40) Alanine Aminotransferase (ALT) 71 U/L (7-40) Alkaline Phosphatase 111 U/L (46-116) Total Protein 7.8 g/dL (5.7-8.2) Albumin 3.5 g/dL (3.2-4.8) White Blood Count 5.0 10^3/uL (4.4-10.8) Red Blood Count 4.74 10^6/uL (4.5-5.90) Hemoglobin 15.6 g/dL (13.5-17.5) Hematocrit 44.7 % (41.0-53.0) Mean Corpuscular Volume 94.2 fL (80.0-100.0) Mean Corpuscular Hemoglobin 32.9 pg (28.0-32.0) Mean Corpuscular Hemoglobin Concent 35.0 g/dL (32.0-36.0) Red Cell Distribution Width 14.7 % (11.8-14.3) Platelet Count 197 10^3/uL (140-450) Mean Platelet Volume 8.5 fL (6.9-10.8) Neutrophils (%) (Auto) 57.3 % (37.0-80.0) Lymphocytes (%) (Auto) 27.5 % (10.0-50.0) Monocytes (%) (Auto) 13.4 % (0.0-12.0) Eosinophils (%) (Auto) 1.5 % (0.0-7.0) Basophils (%) (Auto) 0.3 % (0.0-2.0) Neutrophils # (Auto) 2.8 10 ^3/uL (1.6-8.6) Lymphocytes # (Auto) 1.4 10 ^3/uL (0.4-5.4) Monocytes # (Auto) 0.7 10 ^3/uL (0-1.3) Eosinophils # (Auto) 0.1 10 ^3/uL (0-0.8) Basophils # (Auto) 0 10 ^3/uL (0-0.2) Nucleated Red Blood Cells 0.2 % Free Prostate Specific Antigen 0.51 ng/mL (N/A) Percent Free Prostate Specific Ag 51.0 % (.) Prostate Specific Antigen Total 1.0 ng/mL (0.0-4.0) Urine Osmolality 649 mOsm/kg Urine Creatinine 133.29 mg/dL (30.0-125.0) Urine Protein/Creatinine Ratio 0.38 Urine Sodium 31 mmol/L (40-220) Urine Total Protein 51.3 mg/dL (1-14) Test 05/23/25 05:17 05/22/25 10:13 05/22/25 10:00 05/21/25 15:15 Phosphorus Level 3.1 mg/dL (2.4-5.1) Magnesium Level 2.1 mg/dL (1.6-2.6) Urine Opiates Screen Pos (NEGATIVE) Urine Fentanyl Screen Pos (NEGATIVE) Urine Barbiturates Screen Neg (NEGATIVE) Urine Phencyclidine Screen Neg (NEGATIVE) Urine Amphetamines Screen Neg (NEGATIVE) Urine Benzodiazepines Screen Pos (NEGATIVE) Urine Cocaine Screen Neg (NEGATIVE) Urine Cannabinoids Screen Neg (NEGATIVE) Urine Color Light-orange (Yellow) Urine Clarity Turbid (Clear) Urine pH 5.5 (5.0-9.0) Urine Specific [facility] 1.030 (1.001-1.035) Urine Protein 1+ (Negative) Urine Ketones Negative (Negative) Urine Blood Negative /uL (Negative) Urine Nitrite Negative (Negative) Urine Bilirubin Negative (Negative) Urine Urobilinogen 4 mg/dL (Negative) Urine Leukocyte Esterase Negative /uL (Negative) Urine RBC 1 /hpf (0 - 3) Urine Microscopic WBC < 1 /HPF (0-3) Urine Squamous Epithelial Cells Few /hpf (<5) Urine Bacteria Few /hpf (None Seen) Urine Mucus Few (None Seen) Urine Yeast (Budding) Occasional /hpf (None Urine Glucose Normal mg/dL (Normal) Troponin I High Sensitivity > 60026 ng/L (</=54) Test 05/21/25 13:29 05/21/25 10:30 Hemoglobin A1c 5.4 % A1C (<5.7) Hepatitis B Surface Antigen Negative (Negative) Hepatitis C Antibody Negative (Negative) Prothrombin Time 12.2 sec (9.3-11.8) Prothrombin Time INR 1.17 (0.9-1.15) Activated Partial Thromboplast Time 30.9 SEC (24.5-34.5) B-Type Natriuretic Peptide 277.83 pg/mL (0-100) Triglycerides Level 62 mg/dL (< 150) Cholesterol Level 159 mg/dL (< 200) LDL Cholesterol 108 mg/dL (< 100) HDL Cholesterol 50 mg/dL (40-59) Thyroid Stimulating Hormone (TSH) 1.00 uIU/mL (0.55-4.78) Other Laboratory Tests 05/28/25 09:42 05/25/25 06:22 Brief Hx & Hospital Course: Patient 80 year-old M with PMHx of BPH who presented to the ER with complaints of Chest pain that started on Tuesday05/18/25. Patient described it as pressure like sensation which later subsided and came back prior to coming to the ED. Patient underwent LHC and subsequently found an Aortic Aneurysm. Patient will need to have Cardiothoracic surgery evaluation as outpatient. Patient has elevated LFTs therefore statins could not be started. Counseled on medication compliance. Operations or Procedures DATE OF SURGERY: 05/21/2025 INDICATIONS: The patient is a 80-year-old who was brought to the Emergency Room with chest pain. The patient's ST elevation was noted in the anterior lead, but there is persistent ST elevation even following intervention that is consistent with apical aneurysm. The patient denies any previous history of myocardial infarction. Denies any history of previous coronary artery disease. He has not had any risk stratification in the past. Now, the patient presents above symptoms. The elevated troponin with acute changes of EKG noted. The patient with now anterior wall STEMI, now to undergo coronary angiography to define coronary anatomy emergently. PROCEDURES PERFORMED: * Selective left and right coronary angiography. * Ventriculogram. * Angioplasty with stent placement of the mid to distal left anterior descending artery with a 3.0 x 18 mm Kristopher Ridgeview stent. * Thrombectomy and shockwave treatment of the left anterior descending artery with balloon angioplasty. * Conscious sedation. DESCRIPTION OF PROCEDURE: The patient was prepped and draped in sterile condition. 1% Xylocaine was used to anesthetize the right groin. Using a Cook needle, the right femoral artery was engaged with Seldinger technique. A 6-Austrian sheath in the right femoral artery. Using a 6-Austrian JL4.5 diagnostic catheter and 6-Austrian JR4.0 diagnostic catheter, selective left and right coronary angiography was performed. Then, the 6-Austrian diagnostic system was exchanged for a 6-Austrian interventional system. Using a 6-Austrian XB 4.0 guide catheter to be able to cannulate the left main. Using a Choice PT Extra Support wire, the initial wire was placed into the circumflex artery. The second wire was then negotiated into the left anterior descending artery, which was occluded. Then, the circumflex artery was redirected into the left anterior descending artery and was able to cross the occluded portion of the left anterior descending artery. The lesion was then angioplastied using a 2.5 x 15 mm Euphora balloon. 4 x 2.5 x 15 mm shockwave thrombectomy catheter was used to treat the lesion because it was heavily calcified. Then, a 3.0 x 18 mm Kirstopher Ridgeview stent was then deployed across the lesion at 14 atmospheres. There were no complications. The patient tolerated the procedure well. Ventriculogram was then performed post angioplasty. RESULTS: * Left main calcified, no flow restrictive lesion. Left anterior descending artery was heavily calcified, but at the mid portion of the LAD, it was occluded. Status post angioplasty with stent placement with thrombectomy with less than 10% residual stenosis. * Circumflex artery moderate diffuse disease without any flow-restrictive lesion. * Obtuse marginal one, which is a small caliber vessel, also had moderate diffuse disease; however, it was less than 2 mm in size. * Right coronary artery had large dominant vessel, moderate diffuse disease throughout, heavy plaquing noted throughout, but no discrete lesions were noted. 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 * The patient has very enlarged aneurysmal ascending aorta that required upsizing of the catheters from requiring almost a JL5.0 and XB 4.5 to actually cannulate the coronary anatomy. There was no gradient across the aortic valve as stated above. CONCLUSION: Thus, patient with: * Acute myocardial infarction, anterior wall territory, status post angioplasty with stent placement of the left anterior descending artery. * The patient with aneurysmal ascending aorta. 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 At this time, the patient should be aggressively treated with afterload reduction, preload reduction, dual antiplatelet therapy, anticoagulation as well. We will continue to follow the patient. Echo should be done in about 6 weeks to reassess patient's LV function and a baseline echo should be done while the patient is in the hospital. Condition at Discharge: Poor Final Diagnosis/Problems List # STEMI - s/p [facility] with PCI to LAD # Ascending Aortic Aneurysm - Outpatient followup with CT Surgery # Acute Resp Failure due to possible Aspiration PNA - Titrate Oxygen down - ABx # Possible Acute Systolic CHF # YUNI due to VMN vs ATN - Monitor # BPH - Resume Flomax on DC # Transaminitis - HOLD Statins Discharge Disposition: Home Discharge Instruct/Medications Scheduled Aspirin (Aspirin Low Dose), 81 MG PO DAILY Carvedilol (Coreg), 3.125 MG OR BID Clopidogrel Bisulfate (Clopidogrel), 75 MG PO DAILY Levofloxacin Hemihydrate (Levaquin 500 Mg), 500 MG PO DAILY Lisinopril (Lisinopril), 5 MG PO QAM Discharge Statement: "Patient was advised to return to the ER or call 911 if any headaches, dizziness, shortness of breath, chest pain, abdominal pain, bleeding, fevers, or worsening of medical condition. Patient was counseled about treatment plan, medications, possible side effects, patientverbalized understanding. All questions were answered to the best of my ability. This discharge took greater then 30 minutes in planning, reviewing documentation, counseling the patient, and discussing with other team members." ASSESSMENT ASSESSMENT Assessment Date of Service: May 28, 2025 Billing Provider: JACKSON CASTLE MD Common Visit Codes: 01358-ISQ/OBS DISCH DAY >30min JACKSON CASTLE MD May 28, 2025 14:39
[2025-05-29 05:00] VITALS: BP 128/73; PULSE 60; RESP 17; TEMP 98; O2SAT 95
== END 2025-05-29 08:53 | disposition home health service (06) | DRG 323 ==
LOC: EDBD 10:21 → ER 10:21 → OVERFLOW 10:50 → TELE-WESTW 11:15 → DOU 13:15 → TELE-WESTW 05-23 17:24
PROVIDERS: ADMIT Internal Medicine; ATTEND Internal Medicine
PROC: 02F03ZZ Fragmentation in Coronary Artery, One Artery, Percutaneous Approach (ICD-10-PCS; principal; 2025-05-21)
PROC: 027034Z Dilation of Coronary Artery, One Artery with Drug-eluting Intraluminal Device, Percutaneous Approach (ICD-10-PCS; 2025-05-21)
PROC: 4A023N7 Measurement of Cardiac Sampling and Pressure, Left Heart, Percutaneous Approach (ICD-10-PCS; 2025-05-21)
PROC: B211YZZ Fluoroscopy of Multiple Coronary Arteries using Other Contrast (ICD-10-PCS; 2025-05-21)
PROC: B215YZZ Fluoroscopy of Left Heart using Other Contrast (ICD-10-PCS; 2025-05-21)
DX: I21.09 ST elevation (STEMI) myocardial infarction involving other coronary artery of anterior wall (principal); I50.21 Acute systolic (congestive) heart failure; J69.0 Pneumonitis due to inhalation of food and vomit; N17.0 Acute kidney failure with tubular necrosis; J96.20 Acute and chronic respiratory failure, unspecified whether with hypoxia or hypercapnia; N40.0 Benign prostatic hyperplasia without lower urinary tract symptoms; I71.21 Aneurysm of the ascending aorta, without rupture; R74.01 Elevation of levels of liver transaminase levels; K59.00 Constipation, unspecified; Z88.0 Allergy status to penicillin; Z82.49 Family history of ischemic heart disease and other diseases of the circulatory system; Z79.899 Other long term (current) drug therapy
CPT/HCPCS: 36415; 71045; 71250; 76775; 80053; 80061; 80307; 81001; 82565; 82570; 83036; 83735; 83880; 83935; 84100; 84154; 84156; 84300; 84443; 84484; 84520; 85025; 85610; 85730; 86803; 87081; 87086; 87340; 93005; 93306; 96374; 96375; 97110; 97116; 97163; 97530; 99152; G0378; J2250; J2405; J2543; Q9967

== ENCOUNTER 2025-07-28 14:24 | Inpatient (IN) | payer MEDICARE, MEDICAID ==
[~2025-07-28] VITALS: Ht 185.4 cm; Wt 86.0 kg
[~2025-07-28 14:24] MED LIST: ASPI-325 PO; CARV-214 OR; CLOP75TA70 PO; LEVO500T91 PO; LISI-275 PO
--- NOTE | 2025-07-28 14:30 | ECG ---
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
[2025-07-28 15:13] LABS: Hematocrit 38.6 % (41.0-53.0); Hemoglobin 12.9 g/dL (13.5-17.5); Mean Corpuscular Hemoglobin 32.4 pg (28.0-32.0); Mean Corpuscular Volume 96.4 fL (80.0-100.0); Nucleated Red Blood Cells % 0.1 %
--- NOTE | 2025-07-28 15:13 | ED.PDOC ---
HPI Comments 80-year-old male, is brought in by ambulance with a chief complaint of chest pain. EMS reports, patient is coming from home where he complains of substernal chest pain radiating to his left arm sudden onset, yesterday (07/27/25) while doing yard work. Patient relays, he does have past medical history of OR and endorses symptoms being similar to previous heart attack. At this time patient complains of 8/10 pressure-like chest pain. Patient denies shortness of breath, palpitations, dizziness, headache, nausea, or vomiting. No other symptoms or modifying factors are present at this time. Chief Complaint: Chest Pain Time Seen by MD: 15:00 Reviewed Notes: Nurses Notes, Die Keeper Notes, Medications, Allergies Allergies: Coded Allergies: Penicillins (Verified Allergy, Severe, 05/21/25) Home Meds Active Scripts Lisinopril (Lisinopril) 5 Mg Tab, 5 MG PO QAM for 30 Days, #30 TAB Prov:JACKSON CASTLE MD 05/27/25 Carvedilol (COREG) 3.125 Mg Tab, 3.125 MG OR BID for 30 Days, #60 TAB Prov:JACKSON CASTLE MD 05/27/25 Levofloxacin Hemihydrate (LEVAQUIN 500 MG) 500 Mg Tab, 500 MG PO DAILY for 5 Days, #5 TAB Prov:JACKSON CASTLE MD 05/27/25 Clopidogrel Bisulfate (CLOPIDOGREL) 75 Mg Tab, 75 MG PO DAILY for 30 Days, #30 TAB Prov:JACKSON CASTLE MD 05/27/25 Aspirin (Aspirin Low Dose) 81 Mg Tab, 81 MG PO DAILY for 30 Days, #30 TAB Prov:JACKSON CASTLE MD 05/27/25 Information Source: Patient, Emergency Med Personnel Mode of Arrival: EMS Severity: Moderate Timing: Hours Duration: Since onset Prehospital treatment: None Location: Substernal Radiation: Arm (L) Quality: Pressure Onset: With Light Exertion Cardiac Risk Factors: HTN PE Risk Factors: None History of: Similar pain in past, OR Modifying Factors: Nothing Associated Signs and Symptoms: None Past Medical History PAST MEDICAL HISTORY: CAD, HTN, OR Surgical History: Denies all surgeries Family History Family History: Reviewed,noncontributory to illness, No family hx of Cancer, No family hx of DM, No family hx of Heart alysha, No family hx of HTN, No family hx ofKidney alysha, No family hx of Liver alysha, No family hx of Lung alysha, No family hx of Stroke Social History Smoker: Non-Smoker Alcohol: Denies ETOH Use Drugs: Denies Drug Use Lives In: Home Constitutional: denies: chills, diaphoresis, fatigue, fever, malaise, sweats, weakness, others EENTM: denies: blurred vision, double vision, ear bleeding, ear discharge, ear drainage, ear pain, ear ringing, eye pain, eye redness, hearing loss, mouth pain, mouth swelling, nasal discharge, nose bleeding, nose congestion, nose p ain, photophobia, tearing, throat pain, throat swelling, voice changes, others Respiratory: denies: cough, hemoptysis, orthopnea, SOB at rest, shortness of breath, SOB with excertion, stridor, wheezing, others Cardiovascular: reports: chest pain; denies: dizzy spells, diaphoresis, Dyspnea on exertion, edema, irregular heart beat, left arm pain, lightheadedness, palpitations, PND, syncope, others Gastrointestinal: denies: abdomen distended, abdominal pain, blood streaked bowels, constipated, diarrhea, dysphagia, difficulty swallowing, hematemesis, melena, nausea, poor appetite, poor fluid intake, rectal bleeding, rectal pain, vomiting, others Genitourinary: denies: burning, dysuria, flank pain, frequency, hematuria, incontinence, penile discharge, penile sore, pain, testicle pain, testicle swelling, urgency, others Neurological: denies: dizziness, fainting, headache, left sided numbness, left sided weakness, numbness, paresthesia, pre-existing deficit, right sided numbness, right sided weakness, seizure, speech problems, tingling, tremors, weakness, others Musculoskeletal: denies: back pain, gout, joint pain, joint swelling, muscle pain, muscle stiffness, neck pain, others Integumetry: denies: bruises, change in color, change in hair/nails, dryness, laceration, lesions, lumps, rash, wounds, others Allergic/Immunocompromised: denies: Difficulty Healing, Frequent Infections, Hives, Itching, others Hematologic/Lymphatic: denies: anemia, blood clots, easy bleeding, easy bruising, swollen glands, others Endocrine: denies: excessive hunger, excessive sweating, excessive thirst, excessive urination, flushing, intolerance to cold, intolerance to heat, unexplained weight gain, unexplained weight loss, others Psychiatric: denies: anxiety, bipolar disorder, depression, hopeless, panic disorder, schizophrenia, sleepless, suicidal, others All Other Systems: Reviewed and Negative Physical Exam General Appearance: Moderate Distress HEENT: Normal ENT Inspection, Pharynx Normal, TMs Normal Neck: Full Range of Motion, Non-Tender, Normal, Normal Inspection Respiratory: Chest Non-Tender, Lungs Clear, No Accessory Muscle Use, No Respiratory Distress, Normal Breath Sounds Cardiovascular: No Edema, No JVD, No Murmur, No Gallop, Normal Peripheral Pulses, Regular Rate/Rhythm Breast Exam: Deferred Gastrointestinal: No Organomegaly, Non Tender, No Pulsatile Mass, Normal Bowel Sounds, Soft Genitalia: Deferred Pelvic: Deferred Rectal: Deferred Extremities: No calf tenderness, Normal capillary refill, Normal inspection, Normal range of motion, Non-tender, No pedal edema Musculoskeletal : Apperance: Normal Neurologic: Alert, 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 Was a procedure done?: No CP Differential Dx Differential Diagnosis: Angina, OR Differential Diagnosis: Chest Wall Pain, Costochondritis, Esophageal reflux/spasm, Gastritis X-Ray, Labs, Meds, VS Vital Signs Date Time Temp Pulse Resp B/P (MAP) Pulse Ox O2 Delivery O2 Flow Rate FiO2 07/28/25 17:10 61 07/28/25 16:42 97.7 63 18 133/77 (95) 95 97.7 07/28/25 15:15 57 07/28/25 15:13 98 07/28/25 14:26 58 07/28/25 14:24 98.1 57 18 126/82 98 98.1 Lab Test 07/28/25 15:51 07/28/25 14:51 Range/Units Troponin I High Sensitivity 15 15 </=54 ng/L White Blood Count 4.1 L 4.4-10.8 10^3/uL Red Blood Count 4.00 L 4.5-5.90 10^6/uL Hemoglobin 12.9 L 13.5-17.5 g/dL Hematocrit 38.6 L 41.0-53.0 % Mean Corpuscular Volume 96.4 80.0-100.0 fL Mean Corpuscular Hemoglobin 32.4 H 28.0-32.0 pg Mean Corpuscular Hemoglobin Concent 33.6 32.0-36.0 g/dL Red Cell Distribution Width 15.1 H 11.8-14.3 % Platelet Count 171 140-450 10^3/uL Mean Platelet Volume 7.9 6.9-10.8 fL Neutrophils (%) (Auto) 48.2 37.0-80.0 % Lymphocytes (%) (Auto) 36.5 10.0-50.0 % Monocytes (%) (Auto) 11.1 0.0-12.0 % Eosinophils (%) (Auto) 3.9 0.0-7.0 % Basophils (%) (Auto) 0.3 0.0-2.0 % Neutrophils # (Auto) 2.0 1.6-8.6 10 ^3/uL Lymphocytes # (Auto) 1.5 0.4-5.4 10 ^3/uL Monocytes # (Auto) 0.4 0-1.3 10 ^3/uL Eosinophils # (Auto) 0.2 0-0.8 10 ^3/uL Basophils # (Auto) 0 0-0.2 10 ^3/uL Nucleated Red Blood Cells 0.1 % Sodium Level 138 136-145 mmol/L Potassium Level 4.4 3.5-5.1 mmol/L Chloride Level 104 98-107 mmol/L Carbon Dioxide Level 23 20-31 mmol/L Anion Gap 11 5-15 Blood Urea Nitrogen 30 H 9-23 mg/dL Creatinine 1.50 H 0.700-1.30 mg/dL Glomerular Filtration Rate Calc 47 >90 mL/min BUN/Creatinine Ratio 20.0 10.0-20.0 Serum Glucose 99 74-106 mg/dL Calcium Level 9.0 8.7-10.4 mg/dL B-Type Natriuretic Peptide 104.20 0-100 pg/mL [facility] [id number] [address] Ph: [phone] DIAGNOSTIC IMAGING Diagnostic Imaging Report : [id number] Signed PATIENT: SEBAS BLUE AACCT: [id number] UNIT: [id number] : 1945 LOC: ER ROOM / BED: / AGE / SEX: 80 / M ADM STATUS: REG ER SERVICE 1500 ORDERING PHYSICIAN: SO MEDINA MD PROCEDURE(s): CXRP - CHEST PORTABLE REASON: cp ORDER NUMBER(s): [id number], ACCESSION NUMBER(s): [id number] EXAM: XY CHEST PORTABLE HISTORY: cp TECHNIQUE: 1 view of the chest COMPARISON: CT CHEST WITHOUT CONTRAST on DOS: 05/23/25 FINDINGS/IMPRESSION: LUNGS: No pleural effusion, consolidation, or pneumothorax. elevation of the right hemidiaphragm MEDIASTINUM: Unremarkable. BONES: No acute osseous abnormality. OTHER: None. ATED BY: SANDOR ELAINE MD DICTATED DATE/TIME: 07/28/251544 SIGNED BY: SANDOR ELAINE MD SIGNED DATE/TIME: 07/28/251544 CC: The CBC is within normal limits The chemistry panel shows a BUN of 30 and a creatinine of 1.5 The BNP is 104 The troponin level x2 so far is negative The patient was given aspirin for the chest pain The patient is being admitted with a diagnosis of acute myocardial ischemia Images Reviewed?: Images reviewed and evaluated by me Time of 1ST Reevaluation: 15:30 Reevaluation 1ST: Unchanged Patient Education/Counseling: Diagnosis, Treatment, Prognosis Family Education/Counseling: No Family Present SEPSIS Sepsis Screen Date sepsis recognized/suspect: Jul 28, 2025 Time Sepsis recognized/suspect: 1433 Recent Procedure: No On Antibiotic Therapy: No Respiratory Rate >20: No Heart Rate >90: No Temp<36 C (96.8 F) or >38.3 C: No SBP <90 or MAP <65 mmHG: No New Acute Mental Status Change: No Is the patient on CPAP, BIPAP,: No Physician Orders Troponin-I Hs (07/28/25 17:36) Chest Portable (07/28/25 15:00) Heplock Iv (07/28/25 15:00) Supervisor Coating (07/28/25 15:00) Blood Pressure (07/28/25 15:00) Pulse Oximetry (07/28/25 15:00) Admit (07/28/25 17:46) Allergies (07/28/25 17:46) Code Status (07/28/25 17:46) Acetaminophen Tablet (Tylenol Tablet) (07/28/25 18:00) Ondansetron Hcl (Zofran) (07/28/25 18:00) Complete Blood Count (07/29/25 04:00) Comprehensive Metabolic Panel (07/29/25 04:00) Cardiac Diet-2gna,Lofat,Lochol (07/28/25 Dinner) Condition: Unstable (07/28/25 17:46) Morphine Sulfate Injection (07/28/25 18:00) Notify Of Changes From Base (07/28/25 17:46) Vital Signs Date Time Temp Pulse Resp B/P (MAP) Pulse Ox O2 Delivery O2 Flow Rate FiO2 07/28/25 17:10 61 07/28/25 16:42 97.7 63 18 133/77 (95) 95 97.7 07/28/25 15:15 57 07/28/25 15:13 98 07/28/25 14:26 58 07/28/25 14:24 98.1 57 18 126/82 98 98.1 Laboratory Tests Test 07/28/25 14:51 White Blood Count 4.1 10^3/uL (4.4-10.8) L Departure 1 Departure Time of Disposition: 17:49 Impression: Primary Impression: Acute myocardial ischemia Disposition: 09 ADMITTED INPATIENT Admit to: Tele Condition: Fair Critical Care Note Critical Care Time?: Yes (45 min-critical care time only) Stability Stability form required: Yes Unstable for transfer: Telemetry monitoring (Telemetry monitoring required), ED Physician Assesment (Clinical assesment) Heart Score Heart Score: Heart Score Response (Comments) Value History Moderate Suspicious 1 EKG Normal 0 Age >65 2 Risk Factors 1 or 2 risk factors 1 Troponin N/A 0 Total 4 I personally scribed for SO MEDINA MD ([email or web address]) on 07/28/25 at 15:13. Electronically submitted by Nickie Ziegler ([email or web address]). I personally scribed for SO MEDINA MD ([email or web address]) on 07/28/25 at 16:04. Electronically submitted by Flory Sorenson ([facility]). I personally scribed for SO MEDINA MD ([email or web address]) on 07/28/25 at 16:26. Electronically submitted by Nickie Ziegler ([email or web address]). SO MEDINA MD Jul 28, 2025 15:13
--- NOTE | 2025-07-28 15:17 | ECG ---
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
[2025-07-28 15:18] LABS: Chloride 104 mmol/L (98-107); Potassium 4.4 mmol/L (3.5-5.1); Sodium 138 mmol/L (136-145)
[2025-07-28 15:19] LABS: Anion Gap 11 (5-15); Calcium 9.0 mg/dL (8.7-10.4); Carbon Dioxide 23 mmol/L (20-31)
[2025-07-28 15:24] LABS: BUN/Creatinine Ratio 20.0 (10.0-20.0); Glucose 99 mg/dL (74-106)
[2025-07-28 15:26] LABS: Blood Urea Nitrogen 30 mg/dL (9-23)
--- NOTE | 2025-07-28 15:47 | DVH ---
EXAM: XY CHEST PORTABLE HISTORY: cp TECHNIQUE: 1 view of the chest COMPARISON: CT CHEST WITHOUT CONTRAST on DOS: 05/23/25 FINDINGS/IMPRESSION: LUNGS: No pleural effusion, consolidation, or pneumothorax. elevation of the right hemidiaphragm MEDIASTINUM: Unremarkable. BONES: No acute osseous abnormality. OTHER: None.
--- NOTE | 2025-07-28 17:12 | ECG ---
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
[2025-07-28] MEDS ORDERED: ONDANSETRON HCL 4 MG/2 ML VIAL IV PRN (18:00)
[2025-07-28] MEDS ORDERED: MORPHINE SULFATE 4 MG/ML SYR/VIAL IV PRN (18:00)
--- NOTE | 2025-07-28 18:43 | DVHHPRES ---
History of Present Illness Resident Creating Document: PATY ELDER RESIDENT History of Present Illness Patient Is a 80-year-old male with past medical history of CAD s/p PCI 1 DELFIN in May 2025 at the [facility], heart failure with reduced ejection fraction <25%, dyslipidemia, BPH, who comes in due to chest pain. According to the patient, yesterday he started experiencing a midepigastric chest pain which he describes as burning in nature, 8/10 in intensity, worsens with manual labor/using a shovel without any relieving factors. Patient notes pain is associated with chills. Patient notes he had a similar pain 2 months ago when he was diagnosed with NSTEMI and underwent PCI. Patient is AO x4, however somewhat of a poor historian. On review of systems patient is complaining of a productive cough with whitish sputum, dysuria. Past Medical History CAD s/p PCI 1 DELFIN in May 2025 at the [facility], heart failure with reduced ejection fraction <25%, dyslipidemia, BPH Past Surgical History Hernia repair surgery Past Social History Smoking: Denies Alcohol: Denies Drugs: Denies Lives at home by himself PCP Dr. Lion Review of Systems Constitutional: No: Fever, Chills, Sweats, Weakness, Malaise, Other Eyes: No: Pain, Vision change, Conjunctivae inflammation, Eyelid inflammation, Other, Redness ENT: No: Ear pain, Ear discharge, Nose pain, Nose discharge, Nose congestion, Mouth pain, Mouth swelling, Throat pain, Throat swelling, Other Respiratory: Cough; No: Dry, Shortness of breath, SOB with excertion, Wheezing, Hemoptysis, Pleuritic Pain, Sputum, Wheezing, Other Cardiovascular: Chest Pain; No: Palpitations, Orthopnea, Paroxysmal Noc. Dyspnea, Edema, Lt Headedness, Other Gastrointestinal: No: Nausea, Vomiting, Abdominal Pain, Diarrhea, Constipation, Melena, Hematochezia, Other Genitourinary: Dysuria; No Frequency, No Incontinence, No Hematuria, No Retention, No Other Musculoskeletal: No: other, neck pain, shoulder pain, arm pain, back pain, hand pain, leg pain, foot pain Skin: No: Rash, Lesions, Jaundice, Bruising, Other Neurological: No: Weakness, Numbness, Incoordination, Change in speech, Confusion, Seizures, Other Allergies: Coded Allergies: Penicillins (Verified Allergy, Severe, 05/21/25) Medications Current Medications Medications Dose Ordered Sig/Lacey Route Start Time Stop Time Status Last Admin Dose Admin Acetaminophen 325 mg Q4HP PRN PO 07/28/25 18:00 Ondansetron HCl 4 mg Q4HP PRN IV 07/28/25 18:00 Morphine Sulfate 2 mg Q30M PRN IV 07/28/25 18:00 Aspirin 81 mg DAILY PO 07/28/25 18:00 Clopidogrel Bisulfate 75 mg DAILY PO 07/28/25 18:00 Pantoprazole Sodium 40 mg DAILY@0600 PO 07/29/25 06:00 Atorvastatin Calcium 20 mg HS PO 07/28/25 22:00 Exam Vital Signs Vital Signs Date Time Temp Pulse Resp B/P (MAP) Pulse Ox O2 Delivery O2 Flow Rate FiO2 07/28/25 17:10 61 07/28/25 16:42 97.7 18 133/77 (95) 95 97.7 General Appearance: Alert, Oriented X3, Cooperative, No acute distress HEENT: Atraumatic, EOMI, Mucous membr. moist/pink Respiratory: Clear to auscultation, Normal air movement, Other (Midepigastric pain reproducible on palpation) Cardiovascular: Regular rate, Normal S1, Normal S2 Abdominal: Normal bowel sounds, Soft, No tenderness Extremities: Other (Trace pitting lower extremity edema) Neuro: Normal speech Labs/Xrays Labs Test 07/28/25 17:48 07/28/25 14:51 Range/Units White Blood Count 4.1 L 4.4-10.8 10^3/uL Red Blood Count 4.00 L 4.5-5.90 10^6/uL Hemoglobin 12.9 L 13.5-17.5 g/dL Hematocrit 38.6 L 41.0-53.0 % Mean Corpuscular Volume 96.4 80.0-100.0 fL Mean Corpuscular Hemoglobin 32.4 H 28.0-32.0 pg Mean Corpuscular Hemoglobin Concent 33.6 32.0-36.0 g/dL Red Cell Distribution Width 15.1 H 11.8-14.3 % Platelet Count 171 140-450 10^3/uL Mean Platelet Volume 7.9 6.9-10.8 fL Neutrophils (%) (Auto) 48.2 37.0-80.0 % Lymphocytes (%) (Auto) 36.5 10.0-50.0 % Monocytes (%) (Auto) 11.1 0.0-12.0 % Eosinophils (%) (Auto) 3.9 0.0-7.0 % Basophils (%) (Auto) 0.3 0.0-2.0 % Neutrophils # (Auto) 2.0 1.6-8.6 10 ^3/uL Lymphocytes # (Auto) 1.5 0.4-5.4 10 ^3/uL Monocytes # (Auto) 0.4 0-1.3 10 ^3/uL Eosinophils # (Auto) 0.2 0-0.8 10 ^3/uL Basophils # (Auto) 0 0-0.2 10 ^3/uL Nucleated Red Blood Cells 0.1 % Sodium Level 138 136-145 mmol/L Potassium Level 4.4 3.5-5.1 mmol/L Chloride Level 104 98-107 mmol/L Carbon Dioxide Level 23 20-31 mmol/L Anion Gap 11 5-15 Blood Urea Nitrogen 30 H 9-23 mg/dL Creatinine 1.50 H 0.700-1.30 mg/dL Glomerular Filtration Rate Calc 47 >90 mL/min BUN/Creatinine Ratio 20.0 10.0-20.0 Serum Glucose 99 74-106 mg/dL Calcium Level 9.0 8.7-10.4 mg/dL B-Type Natriuretic Peptide 104.20 0-100 pg/mL SEPSIS Sepsis Screen Date sepsis recognized/suspect: Jul 28, 2025 Time Sepsis recognized/suspect: 1433 Recent Procedure: No On Antibiotic Therapy: No Respiratory Rate >20: No Heart Rate >90: No Temp<36 C (96.8 F) or >38.3 C: No SBP <90 or MAP <65 mmHG: No New Acute Mental Status Change: No Is the patient on CPAP, BIPAP,: No Physician Orders Troponin-I Hs (07/28/25 17:36) Chest Portable (07/28/25 15:00) Heplock Iv (07/28/25 15:00) Pulp Tester (07/28/25 15:00) Blood Pressure (07/28/25 15:00) Pulse Oximetry (07/28/25 15:00) Admit (07/28/25 17:46) Allergies (07/28/25 17:46) Code Status (07/28/25 17:46) Acetaminophen Tablet (Tylenol Tablet) (07/28/25 18:00) Ondansetron Hcl (Zofran) (07/28/25 18:00) Complete Blood Count (07/29/25 04:00) Comprehensive Metabolic Panel (07/29/25 04:00) Cardiac Diet-2gna,Lofat,Lochol (07/28/25 Dinner) Condition: Unstable (07/28/25 17:46) Notify Md Of Changes From Base (07/28/25 17:46) Npo After Midnight (07/28/25 17:49) Npo (Nothing By Mouth) Diet (07/29/25 Breakfast) * Cardiology Consult (07/28/25 17:49) Morphine Sulfate Injection (07/28/25 18:00) Aspirin Enteric Coated Tablet (Ecotrin E (07/28/25 18:00) Clopidogrel Bisulfate (Plavix) (07/28/25 18:00) Pantoprazole Tablet (Protonix Tablet) (07/29/25 06:00) Atorvastatin (Lipitor) (07/28/25 22:00) Vital Signs Date Time Temp Pulse Resp B/P (MAP) Pulse Ox O2 Delivery O2 Flow Rate FiO2 07/28/25 17:10 61 07/28/25 16:42 97.7 63 18 133/77 (95) 95 97.7 07/28/25 15:15 57 07/28/25 15:13 98 07/28/25 14:26 58 07/28/25 14:24 98.1 57 18 126/82 98 98.1 Laboratory Tests Test 07/28/25 14:51 White Blood Count 4.1 10^3/uL (4.4-10.8) L Assessment/Plan Assessment/Plan Chest pain, rule out ACS CAD s/p PCI x1 DELFIN in May 2025 Possible acute on chronic congestive Heart failure with reduced ejection fraction 25% in May 2025 Dyslipidemia - serial troponins 15, 15 - no ST segment elevations on EKG - aspirin 81 mg, Plavix 75 mg - resumed home medication atorvastatin 20 mg - cardiology consulted YUNI, likely hemodynamically mediated/VMN - holding fluids owing to heart failure with reduced ejection fraction - monitor Leukopenia Immunodeficient due to above Anemia, likely of chronic disease MCV 96.4 - monitor Enlarged abdominal aorta 5.2 cm - outpatient follow up with Cardiothoracic surgery Diverticulosis without diverticulitis - Colace 100 mg b.i.d. - MiraLax 17 g p.r.n. - counseled GERD - Protonix - Maalox GI cocktail once PUD prophylaxis: protonix 40mg DVT prophylaxis: Lovenox 40mg (sylvain 5 points) Goals of care: Full code, discussed for >16 minutes on 07/28/2025 Plan discussed with patient Plan discussed with Dr. Dowd Plan discussed with: Patient, Other (RN) My Orders Orders - PATY ELDER RESIDENT Procedure Category Date Status Time Admit ADMIT 07/28/25 Transmitted 17:46 Allergies MARIKA 07/28/25 In Process 17:46 Code Status CODE 07/28/25 Transmitted 17:46 Acetaminophen Tablet PHA 07/28/25 In Process (Tylenol Tablet) 18:00 Ondansetron Hcl PHA 07/28/25 In Process (Zofran) 18:00 Complete Blood Count LAB 07/29/25 Verified 04:00 Comprehensive LAB 07/29/25 Verified Metabolic Panel 04:00 Cardiac DIET 07/28/25 Transmitted Diet-2gna,Lofat,Lochol Dinner Condition: Unstable MARIKA 07/28/25 In Process 17:46 Notify Md Of Changes MARIKA 07/28/25 In Process From Base 17:46 Npo After Midnight MARIKA 07/28/25 In Process 17:49 Npo (Nothing By DIET 07/29/25 Transmitted Mouth) Diet Breakfast * Cardiology Consult CONS 07/28/25 Transmitted 17:49 Morphine Sulfate PHA 07/28/25 In Process Injection 18:00 Aspirin Enteric PHA 07/28/25 In Process Coated Tablet 18:00 Clopidogrel Bisulfate PHA 07/28/25 In Process (Plavix) 18:00 Pantoprazole Tablet PHA 07/29/25 In Process (Protonix Tablet) 06:00 Atorvastatin (Lipitor) PHA 07/28/25 In Process 22:00 Date of Service: Jul 28, 2025 Billing Provider: JACKSON DOWD MD Common Visit Codes: 87052-[id number] INP/OBS CARE (HIGH) Secondary Visit Codes: [id number] CARE PLAN 30 MINUTES PATY ELDER Jul 28, 2025 18:43
[2025-07-28] MEDS ORDERED: POLYETHYLENE GLYCOL 17 GM PWDR PO PRN (18:45)
[2025-07-28 19:03] LABS: Alanine Aminotransferase 24.0 U/L (7-40); Albumin 3.8 g/dL (3.2-4.8); Alkaline Phosphatase 103.0 U/L (46-116); Bilirubin, Direct 0.2 mg/dL (<0.3); Bilirubin, Total 0.5 mg/dL (0.2-1.0)
[2025-07-28 19:05] LABS: Total Protein 8.5 g/dL (5.7-8.2)
[2025-07-28] MEDS: CLOPIDOGREL BISULFATE 75 MG TAB PO SCH (20:04)
[2025-07-28] MEDS: MAALOX PLUS or MAALOX 30 ML PO ONE (20:05)
[2025-07-28] MEDS: PANTOPRAZOLE 40 MG TAB PO ONE (20:05)
[2025-07-28] MEDS: ASPirin-EC 81 mg tab PO SCH (20:05)
[2025-07-28 22:23] LABS: COVID19 ANTIGEN SOFIA FIA NEGATIVE (NEGATIVE)
[2025-07-28] MEDS: ATORVASTATIN 20 MG TAB PO SCH (22:47)
[2025-07-28] MEDS: DOCUSATE SOD 100 MG CAP PO SCH (22:47)
[2025-07-28 23:05] VITALS: BP 146/79; PULSE 69; RESP 15; TEMP 97.5; O2SAT 95
[2025-07-28] MEDS ORDERED: FIN5T PO (23:10)
[2025-07-28] MEDS ORDERED: TAMS0.4C39 PO (23:10)
[2025-07-28] MEDS: ACETAMINOPHEN 325 MG TAB PO PRN (23:39)
[2025-07-29] VITALS (8 sets, daily range): BP systolic 119–160; BP diastolic 69–90; PULSE 56–82; RESP 16–18; TEMP 97.1–98.1; O2SAT 92–100
[2025-07-29 04:12] LABS: Urine Protein, UAD Negative (Negative)
[2025-07-29 04:16] LABS: Barbiturate Scree,Urine Neg (NEGATIVE); Opiate Scree,Urine Neg (NEGATIVE); Phencyclidine Screen, Urine Neg (NEGATIVE)
[2025-07-29 04:17] LABS: Amphetamine Screen, Urine Neg (NEGATIVE); Benzodiazephine Screen, Urine Neg (NEGATIVE); Cannabinoid Screen, Urine Neg (NEGATIVE); Cocaine Screen, Urine Neg (NEGATIVE)
[2025-07-29] MEDS: PANTOPRAZOLE 40 MG TAB PO SCH (06:00)
[2025-07-29 06:39] LABS: Hematocrit 39.6 % (41.0-53.0); Hemoglobin 13.5 g/dL (13.5-17.5); Mean Corpuscular Hemoglobin 32.5 pg (28.0-32.0); Mean Corpuscular Volume 95.0 fL (80.0-100.0); Nucleated Red Blood Cells % 0.1 %
[2025-07-29 06:50] LABS: Alanine Aminotransferase 22 U/L (7-40); Albumin 3.8 g/dL (3.2-4.8); Alkaline Phosphatase 96 U/L (46-116); Anion Gap 10 (5-15); BUN/Creatinine Ratio 14.6 (10.0-20.0); Blood Urea Nitrogen 18 mg/dL (9-23); Calcium 9.4 mg/dL (8.7-10.4); Carbon Dioxide 22 mmol/L (20-31); Chloride 105 mmol/L (98-107); Glucose 91 mg/dL (74-106); Potassium 4.3 mmol/L (3.5-5.1); Sodium 137 mmol/L (136-145)
[2025-07-29 06:51] LABS: Bilirubin, Total 0.9 mg/dL (0.2-1.0)
[2025-07-29 06:52] LABS: Total Protein 8.7 g/dL (5.7-8.2)
--- NOTE | 2025-07-29 09:04 | DVHINCON2 ---
Date of service: Jul 29, 2025 History of Present Illness 80 yo M with recent anterior wall stemi s/p pci , new onset CHF ef <40%, htn, admitted for chest pain. trops are-. ecg shows SR, sepal infarct with TWI ant eriorly. pt taking his anti platelet at home. Past Medical History reviewed Family History: FH: Parkinson's disease G8 MOTHER (UNKNOWN ) Hypertension G8 FATHER, Onset:50's - 60 Allergies: Coded Allergies: Penicillins (Verified Allergy, Severe, 05/21/25) Home Meds Active Scripts Lisinopril (Lisinopril) 5 Mg Tab, 5 MG PO QAM for 30 Days, #30 TAB Prov:JACKSON CASTLE MD 05/27/25 Carvedilol (COREG) 3.125 Mg Tab, 3.125 MG OR BID for 30 Days, #60 TAB Prov:JACKSON CASTLE MD 05/27/25 Levofloxacin Hemihydrate (LEVAQUIN 500 MG) 500 Mg Tab, 500 MG PO DAILY for 5 Days, #5 TAB Prov:JACKSON CASTLE MD 05/27/25 Clopidogrel Bisulfate (CLOPIDOGREL) 75 Mg Tab, 75 MG PO DAILY for 30 Days, #30 TAB Prov:JACKSON CASTLE MD 05/27/25 Aspirin (Aspirin Low Dose) 81 Mg Tab, 81 MG PO DAILY for 30 Days, #30 TAB Prov:JACKSON CASTLE MD 05/27/25 Reported Medications Tamsulosin Hcl (Tamsulosin Hcl) 0.4 Mg Cap, CAP PO 07/28/25 Finasteride (Finasteride) 5 Mg Tab, 1 TAB PO DAILY 07/28/25 Current Medications Current Medications Medications (Trade) Dose Ordered Sig/Lacey Route PRN Reason Start Time Stop Time Status Last Admin Acetaminophen (Tylenol Tablet) 325 mg Q4HP PRN PO MILD PAIN (1-3 PAIN SCALE) 07/28/25 18:00 07/28/25 23:39 Ondansetron HCl (Zofran) 4 mg Q4HP PRN IV NAUSEA / VOMITING 07/28/25 18:00 Morphine Sulfate 2 mg Q30M PRN IV FOR CHEST PAIN 07/28/25 18:00 Aspirin (Ecotrin Enteric Coated Tablet) 81 mg DAILY PO 07/28/25 18:00 07/28/25 20:05 Clopidogrel Bisulfate (Plavix) 75 mg DAILY PO 07/28/25 18:00 07/28/25 20:04 Pantoprazole Sodium (Protonix Tablet) 40 mg DAILY@0600 PO 07/29/25 06:00 Atorvastatin Calcium (Lipitor) 20 mg HS PO 07/28/25 22:00 07/28/25 22:47 Polyethylene Glycol (Miralax 17GM Powder) 17 gm DAILYPRN PRN PO FOR CONSTIPATION 07/28/25 18:45 Docusate Sodium (Colace Capsule) 100 mg BID PO 07/28/25 22:00 07/28/25 22:47 Enoxaparin Sodium (Lovenox) 40 mg DAILY SC 07/29/25 10:00 Review of Systems 10 pt ros otherwise negative Vital Signs Vital Signs Date Time Temp Pulse Resp B/P (MAP) Pulse Ox O2 Delivery O2 Flow Rate FiO2 07/29/25 07:57 Room Air* 0 21 07/29/25 05:00 97.8 56 18 128/76 (93) 96 97.8 Physical Exam nad s1 s2 rrr ctab soft nt/nd no edema Labs/Diagnostic Data Labs Test 07/29/25 05:41 07/29/25 03:47 07/28/25 21:48 07/28/25 17:48 Range/Units White Blood Count 4.2 L 4.4-10.8 10^3/uL Red Blood Count 4.17 L 4.5-5.90 10^6/uL Hemoglobin 13.5 13.5-17.5 g/dL Hematocrit 39.6 L 41.0-53.0 % Mean Corpuscular Volume 95.0 80.0-100.0 fL Mean Corpuscular Hemoglobin 32.5 H 28.0-32.0 pg Mean Corpuscular Hemoglobin Concent 34.2 32.0-36.0 g/dL Red Cell Distribution Width 14.9 H 11.8-14.3 % Platelet Count 171 140-450 10^3/uL Mean Platelet Volume 8.0 6.9-10.8 fL Neutrophils (%) (Auto) 54.1 37.0-80.0 % Lymphocytes (%) (Auto) 30.0 10.0-50.0 % Monocytes (%) (Auto) 13.2 H 0.0-12.0 % Eosinophils (%) (Auto) 2.4 0.0-7.0 % Basophils (%) (Auto) 0.3 0.0-2.0 % Neutrophils # (Auto) 2.3 1.6-8.6 10 ^3/uL Lymphocytes # (Auto) 1.3 0.4-5.4 10 ^3/uL Monocytes # (Auto) 0.6 0-1.3 10 ^3/uL Eosinophils # (Auto) 0.1 0-0.8 10 ^3/uL Basophils # (Auto) 0 0-0.2 10 ^3/uL Nucleated Red Blood Cells 0.1 % Sodium Level 137 136-145 mmol/L Potassium Level 4.3 3.5-5.1 mmol/L Chloride Level 105 98-107 mmol/L Carbon Dioxide Level 22 20-31 mmol/L Anion Gap 10 5-15 Blood Urea Nitrogen 18 # 9-23 mg/dL Creatinine 1.23 0.700-1.30 mg/dL Glomerular Filtration Rate Calc 60 >90 mL/min BUN/Creatinine Ratio 14.6 10.0-20.0 Serum Glucose 91 74-106 mg/dL Calcium Level 9.4 8.7-10.4 mg/dL Total Bilirubin 0.9 0.2-1.0 mg/dL Aspartate Amino Transferase (AST) 30 13-40 U/L Alanine Aminotransferase (ALT) 22 7-40 U/L Alkaline Phosphatase 96 46-116 U/L Total Protein 8.7 H 5.7-8.2 g/dL Albumin 3.8 3.2-4.8 g/dL Urine Color Yellow Yellow Urine Clarity Clear Clear Urine pH 5.0 5.0-9.0 Urine Specific [place] 1.023 1.001-1.035 Urine Protein Negative Negative Urine Ketones Trace Negative Urine Blood Negative Negative /uL Urine Nitrite Negative Negative Urine Bilirubin Negative Negative Urine Urobilinogen Normal Negative mg/dL Urine Leukocyte Esterase Negative Negative /uL Urine RBC <1 0 - 3 /hpf Urine Microscopic WBC < 1 0-3 /HPF Urine Squamous Epithelial Cells None seen <5 /hpf Urine Bacteria Few H None Seen /hpf Urine Hyaline Casts Few 0 - 2 /lpf Urine Mucus Few None Seen Urine Glucose Normal Normal mg/dL Urine Opiates Screen Neg NEGATIVE Urine Fentanyl Screen Neg NEGATIVE Urine Barbiturates Screen Neg NEGATIVE Urine Phencyclidine Screen Neg NEGATIVE Urine Amphetamines Screen Neg NEGATIVE Urine Benzodiazepines Screen Neg NEGATIVE Urine Cocaine Screen Neg NEGATIVE Urine Cannabinoids Screen Neg NEGATIVE Influenza Type A Antigen Negative Negative Influenza Type B Antigen Negative Negative SARS-CoV-2 Antigen (Rapid) Negative NEGATIVE Troponin I High Sensitivity 15 </=54 ng/L Test 07/28/25 14:51 Range/Units Direct Bilirubin 0.2 <0.3 mg/dL B-Type Natriuretic Peptide 104.20 0-100 pg/mL Assessment chest pain r/o acs recent anterior MA nyha class II CHF systolic and diastolic hf ckd htn hl Plan/Recommendation personally reviewed his previous [facility] trops are- bnp is marginal cont dapt cont statin start back his GDMT for low EF, arb/arni, sglt etc monitor bp and hr anti anginal Plan discussed with: Patient JUNE HALL MD Jul 29, 2025 09:04
[2025-07-29] MEDS: ENOXAPARIN SOD 40 MG/0.4 ML SYRINGE SC SCH (09:43)
[2025-07-29] MEDS: LISINOPRIL 5 MG TAB PO ONE (11:15)
--- NOTE | 2025-07-29 16:50 | DVHPNRES ---
Progress Note Date Seen: Jul 29, 2025 Resident Creating Document: BARBER MCMAHAN MD Medical Necessity Reason Pt with a Central, PICC or Fol: No Subjective Review of Systems Patient is a 80-year-old male with past medical history of CAD s/p PCI 1 DELFIN in May 2025 at the [facility], heart failure with reduced ejection fraction <25%, dyslipidemia, BPH, who comes in due to chest pain. According to the patient, yesterday he started experiencing a midepigastric chest pain which he describes as burning in nature, 8/10 in intensity, worsens with manual labor/using a shovel without any relieving factors. Patient notes pain is associated with chills. Patient notes he had a similar pain 2 months ago when he was diagnosed with NSTEMI and underwent PCI. Patient is AO x4, however somewhat of a poor historian. On review of systems patient is complaining of a productive cough with whitish sputum, dysuria. Past Medical History CAD s/p PCI 1 DELFIN in May 2025 at the [facility], heart failure with reduced ejection fraction <25%, dyslipidemia, BPH Past Surgical History Hernia repair surgery Past Social History Smoking: Denies Alcohol: Denies Drugs: Denies Lives at home by himself PCP Dr. Lion General: patient denies fever, fatigue, weaknes, sweating, any recent changes in appetite and weight HEENT: No headaches, visiual changes, hearing loss, tinnitus, nasal congestion and discharge, and sore throat. Cardiovascular: palpitations, dyspnea on exertion, orthopnea, or claudication. Complains of mild chest pain Respiratory: No cough, and wheezing. Gastrointestinal: Denies nausea, vomiting, dysphagia, odynophagia, heartburn, abdominal pain, flatulence, bloating, diarrhea, constipation, change in stool, or blood in stool. Genitourinary: No dysuria, hematuria, discharge, frequency, urgency, nocturia, incontinence, and urinary retention. Endocrine: No heat or cold intolerance, polydipsia, polyuria, and polyphagia. Neurological: No dizziness, extremity weakness and numbness, tremors, gait disturbance, seizures, and memory impairment. Psychiatric: Denies depression, anxiety,or insomnia. Musculoskeletal: Denies neck pain, stiffness and swelling, back pain, muscle weakness, joint pain, stiffness, swelling, or limited range of motion. Skin: No rashes, itching, skin lesion, changes in hair, nail, skin texture and breast. Hematologic/Lymphatic: Denies easy bruising, bleeding tendencies, or lymph node enlargement. Objective vital signs Vital Sign Date Time Temp Pulse Resp B/P (MAP) Pulse Ox O2 Delivery O2 Flow Rate FiO2 07/29/25 13:00 98.0 61 17 147/83 (104) 100 98.0 07/29/25 07:57 Room Air* 0 21 Total Intake and Output 07/28/25 07/28/25 07/29/25 15:00 23:00 07:00 Intake Total 0 ml Balance 0 ml medications Current Medications Medications Dose Ordered Sig/Lacey Route Start Time Stop Time Status Last Admin Dose Admin Acetaminophen 325 mg Q4HP PRN PO 07/28/25 18:00 07/28/25 23:39 325 MG Ondansetron HCl 4 mg Q4HP PRN IV 07/28/25 18:00 Morphine Sulfate 2 mg Q30M PRN IV 07/28/25 18:00 Aspirin 81 mg DAILY PO 07/28/25 18:00 07/29/25 09:42 81 MG Clopidogrel Bisulfate 75 mg DAILY PO 07/28/25 18:00 07/29/25 09:42 75 MG Pantoprazole Sodium 40 mg DAILY@0600 PO 07/29/25 06:00 Atorvastatin Calcium 20 mg HS PO 07/28/25 22:00 07/28/25 22:47 20 MG Polyethylene Glycol 17 gm DAILYPRN PRN PO 07/28/25 18:45 Docusate Sodium 100 mg BID PO 07/28/25 22:00 07/29/25 09:42 100 MG Enoxaparin Sodium 40 mg DAILY SC 07/29/25 10:00 07/29/25 09:43 40 MG Lisinopril 5 mg DAILY PO 07/30/25 10:00 Finasteride 5 mg DAILY PO 07/30/25 10:00 Empaglifozin 10 mg DAILY PO 07/30/25 10:00 Tamsulosin HCl 0.4 mg QPM PO 07/29/25 18:00 UNV Examination General Appearance: Alert, Oriented X3, Cooperative, No acute distress HEENT: Atraumatic, PERRLA, EOMI, Mucous membrane moist/pink Respiratory: Clear to auscultation, Normal air movement Cardiovascular: Regular rate, Normal S1, Normal S2, No murmurs, chest wall tenderness present Abdominal: Normal bowel sounds, Soft, No tenderness, No hepatospenomegaly, No masses Extremities: No clubbing, No cyanosis, No edema, Normal pulses, No tenderness/swelling Skin: No rashes, No breakdown, No significant lesion Neuro: Normal gait, Normal speech, Strength at 5/5 X4 ext, Normal tone, Sensation intact, Cranial nerves 3-12 NL, Reflexes 2+ Psych/Mental Status: Mental status NL, Mood NL laboratory and microbiology Laboratory Tests 07/29/25 05:41 Test 07/29/25 05:41 Range/Units Serum Glucose 91 74-106 mg/dL Problem List/Assessment/Plan Problem List/Assessment/Plan Assessment and plan Chest pain, rule out ACS CAD s/p PCI x1 DELFIN in May 2025 Possible acute on chronic congestive Heart failure with reduced ejection fraction 25% in May 2025 Dyslipidemia - serial troponins 15, 15 - no ST segment elevations on EKG - aspirin 81 mg, Plavix 75 mg - resumed home medication atorvastatin 20 mg - cardiology consulted YUNI, likely hemodynamically mediated/VMN - holding fluids owing to heart failure with reduced ejection fraction - monitor Leukopenia Immunodeficient due to above Anemia, likely of chronic disease MCV 96.4 - monitor Enlarged abdominal aorta 5.2 cm - outpatient follow up with Cardiothoracic surgery Diverticulosis without diverticulitis - Colace 100 mg b.i.d. - MiraLax 17 g p.r.n. - counseled GERD - Protonix - Maalox GI cocktail once PUD prophylaxis: protonix 40mg DVT prophylaxis: Lovenox 40mg (sylvain 5 points) Goals of care: Full code, discussed for >16 minutes on 07/28/2025 Plan discussed with patient Plan discussed with Dr. Mcmahan Plan discussed with: Patient My Orders My Orders Orders - NIESHA WHITING RESIDENT Procedure Category Date Status Time Electrocardigram EKG 07/29/25 Logged 10:57 Troponin-I Hs LAB 07/29/25 Logged 10:57 Lisinopril Tablet PHA 07/30/25 In Process (Zestril Tablet) 10:00 Finasteride Tablet PHA 07/30/25 In Process (Proscar Tablet) 10:00 Tamsulosin PHA 07/29/25 Logged Hydrochloride (Flomax) 18:00 Date of Service: Jul 29, 2025 Billing Provider: BARBER MCMAHAN MD Common Visit Codes: [id number] INP/OBS CARE(HIGH) NIESHA WHITING RESIDENT Jul 29, 2025 16:50 BARBER MCMAHAN MD Jul 29, 2025 18:12
[2025-07-29] MEDS: TAMSULOSIN HYDROCHLORIDE 0.4 MG CAP PO SCH (17:51)
[2025-07-29] MEDS ORDERED: TAMSULOSIN HYDROCHLORIDE 0.4 MG CAP PO SCH (18:00)
[2025-07-30 01:00] VITALS: BP 105/71; PULSE 75; RESP 17; TEMP 98.3; O2SAT 94
[2025-07-30 05:00] VITALS: BP 104/71; PULSE 70; RESP 17; TEMP 97.7; O2SAT 92
[2025-07-30 08:00] VITALS: PULSE 100; PULSE 74; RESP 18; O2SAT 95
[2025-07-30 09:00] VITALS: BP 105/71; PULSE 74; RESP 18; TEMP 98; O2SAT 94
[2025-07-30] MEDS: FINASTERIDE 5 MG TAB PO SCH (09:59)
[2025-07-30] MEDS: LISINOPRIL 5 MG TAB PO SCH (09:59)
[2025-07-30] MEDS: EMPAGLIFLOZIN 10 MG TAB PO SCH (09:59)
[2025-07-30 10:12] LABS: Chloride 103 mmol/L (98-107); Potassium 4.5 mmol/L (3.5-5.1); Sodium 139 mmol/L (136-145)
[2025-07-30 10:13] LABS: Anion Gap 13 (5-15); Carbon Dioxide 23 mmol/L (20-31)
[2025-07-30 10:14] LABS: Calcium 9.5 mg/dL (8.7-10.4)
[2025-07-30 10:18] LABS: BUN/Creatinine Ratio 13.0 (10.0-20.0); Blood Urea Nitrogen 18 mg/dL (9-23); Glucose 106 mg/dL (74-106)
[2025-07-30 12:34] VITALS: BP 125/79; PULSE 67; RESP 17; TEMP 98.4; O2SAT 96
--- NOTE | 2025-07-30 13:31 | ECG ---
[facility] Test Date: 2025-07-29 Test Time: 11:11:30 Pat Name: SEBAS BLUE Department: Room: 0294T B Gender: M Residency Director: MARBIN WELDON LVN : [id number] Requested By: NIESHA WHITING Order Number: [id number] Reading MD: Lex Ford Measurements Intervals Clint Rate: 55 P: -45 NH: 176 QRS: -58 QRSD: 116 T: 167 QT: 479 QTc: 459 Interpretive Statements Pediatric ECG interpretation Sinus or ectopic atrial bradycardia Prolonged NH interval Nonspecific intraventricular conduction delay Low voltage, extremity and precordial leads Baseline wander in lead(s) V2,V4 Electronically Signed On 08-02-2025 15:31:04 PST by Lex Ford Please click the below link to view image of tracing.
[2025-07-30] MEDS ORDERED: ATOR20TA50 PO (14:13)
[2025-07-30] MEDS ORDERED: EMPA1TAB PO (14:13)
[2025-07-30] MEDS ORDERED: PANT40T PO (14:13)
[2025-07-30] MEDS ORDERED: SPIR25TA8 PO (14:15)
--- NOTE | 2025-07-30 14:56 | DVHDSRES ---
Discharge Summary Date of Admission Resident Creating Document: BARBER CROWE MD Jul 28, 2025 at 17:46 Date of Discharge: Jul 30, 2025 Labs/Diagnostic Data: Laboratory Results Test 07/30/25 09:27 07/29/25 18:49 07/29/25 05:41 07/29/25 03:47 Sodium Level 139 mmol/L (136-145) Potassium Level 4.5 mmol/L (3.5-5.1) Chloride Level 103 mmol/L (98-107) Carbon Dioxide Level 23 mmol/L (20-31) Anion Gap 13 (5-15) Blood Urea Nitrogen 18 mg/dL (9-23) Creatinine 1.38 mg/dL (0.700-1.30) Glomerular Filtration Rate Calc 52 mL/min (>90) BUN/Creatinine Ratio 13.0 (10.0-20.0) Serum Glucose 106 mg/dL (74-106) Calcium Level 9.5 mg/dL (8.7-10.4) Troponin I High Sensitivity 19 ng/L (</=54) White Blood Count 4.2 10^3/uL (4.4-10.8) Red Blood Count 4.17 10^6/uL (4.5-5.90) Hemoglobin 13.5 g/dL (13.5-17.5) Hematocrit 39.6 % (41.0-53.0) Mean Corpuscular Volume 95.0 fL (80.0-100.0) Mean Corpuscular Hemoglobin 32.5 pg (28.0-32.0) Mean Corpuscular Hemoglobin Concent 34.2 g/dL (32.0-36.0) Red Cell Distribution Width 14.9 % (11.8-14.3) Platelet Count 171 10^3/uL (140-450) Mean Platelet Volume 8.0 fL (6.9-10.8) Neutrophils (%) (Auto) 54.1 % (37.0-80.0) Lymphocytes (%) (Auto) 30.0 % (10.0-50.0) Monocytes (%) (Auto) 13.2 % (0.0-12.0) Eosinophils (%) (Auto) 2.4 % (0.0-7.0) Basophils (%) (Auto) 0.3 % (0.0-2.0) Neutrophils # (Auto) 2.3 10 ^3/uL (1.6-8.6) Lymphocytes # (Auto) 1.3 10 ^3/uL (0.4-5.4) Monocytes # (Auto) 0.6 10 ^3/uL (0-1.3) Eosinophils # (Auto) 0.1 10 ^3/uL (0-0.8) Basophils # (Auto) 0 10 ^3/uL (0-0.2) Nucleated Red Blood Cells 0.1 % Total Bilirubin 0.9 mg/dL (0.2-1.0) Aspartate Amino Transferase (AST) 30 U/L (13-40) Alanine Aminotransferase (ALT) 22 U/L (7-40) Alkaline Phosphatase 96 U/L (46-116) Total Protein 8.7 g/dL (5.7-8.2) Albumin 3.8 g/dL (3.2-4.8) Urine Color Yellow (Yellow) Urine Clarity Clear (Clear) Urine pH 5.0 (5.0-9.0) Urine Specific [place] 1.023 (1.001-1.035) Urine Protein Negative (Negative) Urine Ketones Trace (Negative) Urine Blood Negative /uL (Negative) Urine Nitrite Negative (Negative) Urine Bilirubin Negative (Negative) Urine Urobilinogen Normal mg/dL (Negative) Urine Leukocyte Esterase Negative /uL (Negative) Urine RBC <1 /hpf (0 - 3) Urine Microscopic WBC < 1 /HPF (0-3) Urine Squamous Epithelial Cells None seen /hpf (<5) Urine Bacteria Few /hpf (None Seen) Urine Hyaline Casts Few /lpf (0 - 2) Urine Mucus Few (None Seen) Urine Glucose Normal mg/dL (Normal) Urine Opiates Screen Neg (NEGATIVE) Urine Fentanyl Screen Neg (NEGATIVE) Urine Barbiturates Screen Neg (NEGATIVE) Urine Phencyclidine Screen Neg (NEGATIVE) Urine Amphetamines Screen Neg (NEGATIVE) Urine Benzodiazepines Screen Neg (NEGATIVE) Urine Cocaine Screen Neg (NEGATIVE) Urine Cannabinoids Screen Neg (NEGATIVE) Test 07/28/25 21:48 07/28/25 14:51 Influenza Type A Antigen Negative (Negative) Influenza Type B Antigen Negative (Negative) SARS-CoV-2 Antigen (Rapid) Negative (NEGATIVE) Direct Bilirubin 0.2 mg/dL (<0.3) B-Type Natriuretic Peptide 104.20 pg/mL (0-100) Other Laboratory Tests 07/30/25 09:27 07/29/25 05:41 Brief Hx & Hospital Course: Patient is a 80-year-old male with past medical history of CAD s/p PCI 1 DELFIN in May 2025 at the [facility], heart failure with reduced ejection fraction <25%, dyslipidemia, BPH, who comes in due to chest pain. 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 Patient noted pain is associated with chills. Patient noted he had a similar pain 2 months ago when he was diagnosed with NSTEMI and underwent PCI. Patient was AO x4, however somewhat of a poor historian. She also complained of a productive cough with whitish sputum, dysuria. Chest x-ray showed no abnormality. EKG showed no ST/ T wave abnormalities. Troponin levels were normal. Cardiology was consulted. During the course of the hospitalization, the patient was better clinically and is hence being discharged. 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 Anemia, likely of chronic disease Enlarged abdominal aorta Diverticulosis without diverticulitis GERD Discharge Disposition: Home Discharge Instruct/Medications Diet: Cardiac 2g Na,low cholest Activity: No Restrictions, As Tolerated Follow Up/Referral: F/u with PCP in 7 days Medications: as per EHR Scheduled Aspirin (Aspirin Low Dose), 81 MG PO DAILY Atorvastatin Calcium (Atorvastatin Calcium), 40 MG PO HS Carvedilol (Coreg), 3.125 MG OR BID Clopidogrel Bisulfate (Clopidogrel), 75 MG PO DAILY Empagliflozin (Jardiance), 10 MG PO DAILY Finasteride (Finasteride), 1 TAB PO DAILY, (Reported) Lisinopril (Lisinopril), 5 MG PO QAM Pantoprazole Sodium Sesquihydr (Pantoprazole Sodium), 40 MG PO DAILY@0600 Spironolactone (Spironolactone), 0.5 TAB PO DAILY Miscellaneous Medications Tamsulosin Hcl (Tamsulosin Hcl), CAP PO, (Reported) Discontinued Medications Levofloxacin Hemihydrate (Levaquin 500 Mg), 500 MG PO DAILY Discharge Statement: "Patient was advised to return to the ER or call 911 if any headaches, dizziness, shortness of breath, chest pain, abdominal pain, bleeding, fevers, or worsening of medical condition. Patient was counseled about treatment plan, medications, possible side effects, patientverbalized understanding. All questions were answered to the best of my ability. This discharge took greater then 30 minutes in planning, reviewing documentation, counseling the patient, and discussing with other team members." ASSESSMENT ASSESSMENT Assessment Chest pain likely due to GERD ruled out ACS Date of Service: Jul 30, 2025 Billing Provider: BARBER CROWE MD Common Visit Codes: 61060-NDE/OBS DISCH DAY >30min NIESHA WHITING RESIDENT Jul 30, 2025 14:56 BARBER CROWE MD Jul 31, 2025 06:42
[2025-07-30 15:31] VITALS: BP 125/79; PULSE 67; RESP 17; TEMP 98.4; O2SAT 96
--- NOTE | 2025-07-30 17:13 | CONS ---
Pharmacy Clinical Information: From Heart Failure Fallout Report on CQM Application, Solitario Loyola 79 with PMH of HFrEF, HLD, BPH, CAD s/p PCI 1 DELFIN His home medications for heart failure include carvedilol, spironolactone, l isinopril, and empagliflozin His hospital medications for heart failure include lisinopril and empagliflozin Patient already has a summary discharge with all the GDMT in place [facility] RESIDENT Jul 30, 2025 17:13
== END 2025-07-30 16:35 | disposition home or self-care (01) | DRG 391 ==
LOC: ER 14:24 → EDBD 14:24 → OVERFLOW 17:46 → TELE-WESTW 23:04
PROVIDERS: ADMIT Internal Medicine; ATTEND Internal Medicine
DX: K21.9 Gastro-esophageal reflux disease without esophagitis (principal); I50.43 Acute on chronic combined systolic (congestive) and diastolic (congestive) heart failure; N17.0 Acute kidney failure with tubular necrosis; I13.0 Hypertensive heart and chronic kidney disease with heart failure and stage 1 through stage 4 chronic kidney disease, or unspecified chronic kidney disease; D84.9 Immunodeficiency, unspecified; N18.9 Chronic kidney disease, unspecified; D63.1 Anemia in chronic kidney disease; Z20.822 Contact with and (suspected) exposure to COVID-19; I25.10 Atherosclerotic heart disease of native coronary artery without angina pectoris; E78.5 Hyperlipidemia, unspecified; N40.0 Benign prostatic hyperplasia without lower urinary tract symptoms; K57.90 Diverticulosis of intestine, part unspecified, without perforation or abscess without bleeding; I25.2 Old myocardial infarction; Z98.61 Coronary angioplasty status; Z82.0 Family history of epilepsy and other diseases of the nervous system; Z82.49 Family history of ischemic heart disease and other diseases of the circulatory system; Z88.0 Allergy status to penicillin; Z79.899 Other long term (current) drug therapy; Z79.82 Long term (current) use of aspirin
CPT/HCPCS: 36415; 71045; 80048; 80053; 80076; 80307; 81001; 83880; 84484; 85025; 87040; 87086; 87426; 87804; 93005; 99291; G0378